=== PATIENT | female | born 1980 | race African-American/Black ===

== ENCOUNTER 2017-03-14 17:51 | Emergency (ER) | payer OTHER ==
[~2017-03-14] VITALS: Ht 149.9 cm; Wt 48.0 kg
[2017-03-14 17:53] VITALS: BP 122/68; PULSE 118; RESP 24; TEMP 98.7; O2SAT 97
[2017-03-14 19:07] LABS: AUTOMATED NEUTROPHIL # 20.2 TH/MM3 (1.8-7.7); BASOPHIL # 0.1 TH/MM3 (0-0.2); BASOPHIL % 0.3 % (0.0-2.0); HEMATOCRIT 42.6 % (35.0-46.0); HEMO FLAGS DIFF FINAL; LYMPH % 8.3 % (9.0-44.0); MEAN CELL VOLUME 98.3 FL (80.0-100.0); MEAN CORPUSCULAR HEMOGLOBIN 32.5 PG (27.0-34.0); MEAN CORPUSCULAR HGB CONC 33.1 % (32.0-36.0); MONO % 8.4 % (0.0-8.0); PLATELET COUNT 251 TH/MM3 (150-450); RED BLOOD COUNT 4.33 MIL/MM3 (4.00-5.30); RED CELL DISTRIBUTION WIDTH 14.3 % (11.6-17.2); WHITE BLOOD COUNT 24.4 TH/MM3 (4.0-11.0)
[2017-03-14 19:11] LABS: BACTERIA, URINE RARE /hpf; BLOOD, URINE MOD (NEG); COMMENT (UR) CULT NOT INDICATED; CULTURE IF INDICATED CULT NOT INDICATED; GLUCOSE,URINE NEG (NEG); KETONE, URINE NEG (NEG); NITRITE,URINE NEG (NEG); PH, URINE 6.5 (5.0-8.5); SQUAMOUS EPITHELIAL CELL URINE 1 /hpf (0-5); URINE COLOR LIGHT-YELLOW (YELLW/STRAW)
[2017-03-14 19:23] LABS: ANION GAP 12 MEQ/L (5-15); AST (GOT) 41 U/L (15-37); BICARBONATE 23.6 MEQ/L (21.0-32.0); BLOOD UREA NITROGEN 4 MG/DL (7-18); CHLORIDE 101 MEQ/L (98-107); GLOMERULAR FILTRATION RATE 72 ML/MIN (>89); POTASSIUM 3.4 MEQ/L (3.5-5.1); SODIUM (NA) 137 MEQ/L (136-145)
[2017-03-14 19:24] LABS: ALT (GPT) 37 U/L (10-53)
[2017-03-14 19:26] LABS: ALKALINE PHOSPHATASE 89 U/L (45-117); TOTAL BILIRUBIN ADULT 1.3 MG/DL (0.2-1.0)
[2017-03-15] MEDS ORDERED: QUET300XR PO (09:24)
[2017-03-15] MEDS ORDERED: CELE40TA PO (09:24)
[2017-03-15] MEDS ORDERED: DOXY100C PO (10:40)
[2017-03-15] MEDS ORDERED: METR-1 PO (10:40)
[2017-03-15] MEDS ORDERED: NAPR500T PO (10:40)
[2017-03-15] MEDS ORDERED: MACR100C2 PO (10:47)
[2017-03-22] MEDS ORDERED: ZOFR4TAB3 SL (12:42)
== END 2017-03-14 22:24 | disposition left against medical advice (07) ==
LOC: NED 17:51
DX: R10.9 Unspecified abdominal pain (principal)
CPT/HCPCS: 80053; 81001; 83690; 84703; 85025; 99281

== ENCOUNTER 2017-03-15 09:10 | Inpatient (IN) | payer OTHER ==
[~2017-03-15] VITALS: Ht 149.9 cm; Wt 50.0 kg
[2017-03-15 09:12] VITALS: BP 112/70; PULSE 130; RESP 20; TEMP 99.1; O2SAT 99
[2017-03-15] MEDS ORDERED: QUET300XR PO (09:24)
[2017-03-15] MEDS ORDERED: CELE40TA PO (09:24)
[2017-03-15 09:59] LABS: AUTOMATED NEUTROPHIL # 11.5 TH/MM3 (1.8-7.7); BASOPHIL % 0.2 % (0.0-2.0); EOSINOPHIL % 0.1 % (0.0-4.0); HEMO FLAGS DIFF FINAL; LYMPH % 5.5 % (9.0-44.0); LYMPHOCYTE # 0.7 TH/MM3 (1.0-4.8); MEAN CELL VOLUME 96.4 FL (80.0-100.0); MEAN CORPUSCULAR HEMOGLOBIN 32.9 PG (27.0-34.0); MEAN CORPUSCULAR HGB CONC 34.1 % (32.0-36.0); MONO % 3.9 % (0.0-8.0); NEUT % 90.3 % (16.0-70.0); PLATELET COUNT 224 TH/MM3 (150-450); RED BLOOD COUNT 3.63 MIL/MM3 (4.00-5.30); RED CELL DISTRIBUTION WIDTH 14.4 % (11.6-17.2); WHITE BLOOD COUNT 12.7 TH/MM3 (4.0-11.0)
[2017-03-15 10:10] VITALS: BP 115/77; PULSE 102; RESP 16; O2SAT 99
--- NOTE | 2017-03-15 10:13 | PD ---
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 The patient denies a fevers, chills patient was noted to have a low- grade temperature of 99.1 in triage. The patient states that she feels as though she has pressure in her vaginal area. She also reports abdominal discomfort in her lower abdominal area. As no dysuria, frequency. There is no diarrhea. She has had nausea vomiting. PFSH Past Medical History Depression: Yes ?: Unknown LMP: 01/23 Social History Alcohol Use: Yes (beer daily) Tobacco Use: Yes (/2 ppd) Substance Use: Yes (marijuana) Allergies-Medications (Allergen,Severity, Reaction): Coded Allergies: No Known Allergies (Unverified , 03/15/17) Reported Meds & Prescriptions Reported Meds & Active Scripts Active Macrobid (Nitrofurantoin Monoh/Nitrofur Macro) 100 Mg Cap 100 Mg PO BID Naproxen 500 Mg Tab 500 Mg PO BID Doxycycline Hyclate 100 Mg Cap 100 Mg PO BID Reported Seroquel XR (Quetiapine Fumarate) 300 Mg Tab 300 Mg PO HS Celexa (Citalopram Hydrobromide) 40 Mg Tab 40 Mg PO DAILY Review of Systems Except as stated in HPI: all other systems reviewed are Neg General / Constitutional: No: Fever (nonreported but temp of 99 point) HENT: No: Headaches, Neck Pain Cardiovascular: No: Chest Pain or Discomfort, Palpitations Respiratory: No: Cough, Shortness of Breath Gastrointestinal: Positive: Nausea, Vomiting, Abdominal Pain (lower abdominal/ pelvic), No: Diarrhea Genitourinary: Positive: Pelvic Pain, Discharge (thick yellow-green), No: Frequency, Dysuria Musculoskeletal: No: Weakness, Pain Neurologic: No: Weakness, Dizziness Physical Exam Narrative GENERAL: Well-nourished, well-developed patient. SKIN: Focused skin assessment warm/dry. HEAD: Normocephalic/atraumatic. EYES: No scleral icterus. No injection or drainage. NECK: Supple, trachea midline. No JVD or lymphadenopathy. CARDIOVASCULAR: Regular rate and rhythm without murmurs, gallops, or rubs. RESPIRATORY: Breath sounds equal bilaterally. No accessory muscle use. GASTROINTESTINAL: Abdomen soft, nondistended. She has subjective lower abdominal pain in the middle and in the pelvic area. GENITOURINARY: In the presence of Lashae Quiñones RN. Normal external genitalia without lesions or erythema. Vaginal vault without blood yellow green discharge. Cervical os was closed without drainage. Positive cervical motion tenderness with "chandelier sign". No adnexal masses. There was adnexal discomfort on bimanual exam. MUSCULOSKELETAL: No cyanosis, or edema. BACK: Nontender without obvious deformity. No CVA tenderness. Data Data Last Documented VS Vital Signs Date Time Temp Pulse Resp B/P Pulse Ox O2 Delivery O2 Flow Rate FiO2 03/15/17 09:12 99.1 130 20 112/70 99 Room Air Orders Complete Blood Count With Diff (03/15/17 09:22) Basic Metabolic Panel (Bmp) (03/15/17 09:22) Gc And Chlamydia Pcr (03/15/17 09:22) Wet Prep Profile (03/15/17 09:22) Urinalysis - C+S If Indicated (03/15/17 09:22) Ed Urine Pregnancytest Poc (03/15/17 09:22) Urine Culture (03/15/17 09:30) Doxycycline (Vibratab) (03/15/17 10:45) Lidocaine 1% Inj (50 Ml) (Xylocaine 1% I (03/15/17 10:45) Ceftriaxone Inj (Rocephin Inj) (03/15/17 10:45) Labs Laboratory Tests Test 03/15/17 03/15/17 09:30 10:01 White Blood Count 12.7 TH/MM3 Red Blood Count 3.63 MIL/MM3 Hemoglobin 11.9 GM/DL Hematocrit 35.0 % Mean Corpuscular Volume 96.4 FL Mean Corpuscular Hemoglobin 32.9 PG Mean Corpuscular Hemoglobin 34.1 % Concent Red Cell Distribution Width 14.4 % Platelet Count 224 TH/MM3 Mean Platelet Volume 8.7 FL Neutrophils (%) (Auto) 90.3 % Lymphocytes (%) (Auto) 5.5 % Monocytes (%) (Auto) 3.9 % Eosinophils (%) (Auto) 0.1 % Basophils (%) (Auto) 0.2 % Neutrophils # (Auto) 11.5 TH/MM3 Lymphocytes # (Auto) 0.7 TH/MM3 Monocytes # (Auto) 0.5 TH/MM3 Eosinophils # (Auto) 0.0 TH/MM3 Basophils # (Auto) 0.0 TH/MM3 CBC Comment DIFF FINAL Differential Comment Urine Color YELLOW Urine Turbidity HAZY Urine pH 6.5 Urine Specific [place] 1.017 Urine Protein 30 mg/dL Urine Glucose (UA) NEG mg/dL Urine Ketones TRACE mg/dL Urine Occult Blood MOD Urine Nitrite NEG Urine Bilirubin NEG Urine Urobilinogen 8.0 MG/DL Urine Leukocyte Esterase MOD Urine RBC 60 /hpf Urine WBC 12 /hpf Urine Squamous Epithelial 4 /hpf Cells Urine Bacteria RARE /hpf Urine Hyaline Casts 1 /lpf Urine Mucus FEW /lpf Microscopic Urinalysis Comment CULTURE INDICATED Clue Cells (Wet Prep) NONE SEEN Vaginal Trichomonas (Wet Prep) NONE SEEN Vaginal Yeast (Wet Prep) NONE SEEN MDM Medical Decision Making Medical Screen Exam Complete: Yes Emergency Medical Condition: Yes Differential Diagnosis Pelvic inflammatory disease versus intra-abdominal infection versus cystitis versus ectopic Narrative Course 36-year-old female present with pelvic pain and vaginal discharge. The patient has cervical motion tenderness with "chandelier sign on exam. Patient is also noted to have a UTI on exam. She's been given Rocephin and 1 dose of doxycycline orally. She'll be given 14 days further of doxycycline. She'll also be given a prescription for Macrobid for her UTI. She is instructed to follow up through [facility]. She's also instructed to practice safe sex and have her partner treated. Diagnosis Primary Impression: Pelvic infection in female Additional Impression: Urinary tract infection Additional Instructions: Have your partner treated. Safe sex. Follow up for [facility]. Med/Other Pt SpecificInfo: Prescription(s) given Scripts Nitrofurantoin Monohydrate Macrocrystals (Macrobid)100 Mg [id number] Mg PO BID #14 CAP Ref 0 Prov:Momo Miner MD 03/15/17 Naproxen 500 Mg [id number] Mg PO BID #20 TAB Ref 0 Prov:Momo Miner MD 03/15/17 Doxycycline Hyclate 100 Mg [id number] Mg PO BID #28 CAP Ref 0 Prov:Momo Miner MD 03/15/17 Disposition: 01 DISCHARGE HOME Condition: Stable Momo Miner MD Mar 15, 2017 10:13
[2017-03-15 10:20] LABS: BICARBONATE 21.2 MEQ/L (21.0-32.0)
[2017-03-15 10:27] LABS: BACTERIA, URINE RARE /hpf; BLOOD, URINE MOD (NEG); COMMENT (UR) CULTURE INDICATED; CULTURE IF INDICATED CULTURE INDICATED; GLUCOSE,URINE NEG (NEG); HYALINE CAST, URINE 1 /lpf (RARE); KETONE, URINE TRACE mg/dL (NEG); MUCUS URINE FEW /lpf (OCC); NITRITE,URINE NEG (NEG); PH, URINE 6.5 (5.0-8.5); SQUAMOUS EPITHELIAL CELL URINE 4 /hpf (0-5); URINE COLOR YELLOW (YELLW/STRAW)
[2017-03-15] MEDS ORDERED: NAPR500T PO (10:40)
[2017-03-15] MEDS ORDERED: METR-1 PO (10:40)
[2017-03-15] MEDS ORDERED: DOXY100C PO (10:40)
[2017-03-15] MEDS ORDERED: DOXYCYCLINE HYCLATE 100 MG TAB PO ONE (10:45)
[2017-03-15] MEDS ORDERED: LIDOCAINE HCL 1% 50 ML VIAL IM ONE (10:45)
[2017-03-15] MEDS ORDERED: MACR100C2 PO (10:47)
[2017-03-15 10:50] LABS: POTASSIUM 2.9 MEQ/L (3.5-5.1)
[2017-03-15] MEDS ORDERED: ceFOXitin INJ 2 GM in SODIUM CHLORIDE 0.9% INJ 100 ML IV ONE (11:15)
[2017-03-15] MEDS: POTASSIUM CHLORIDE INJ 30 MEQ in LACTATED RINGER'S 1000 ML INJ 1,000 ML IV SCH (11:15)
[2017-03-15] MEDS ORDERED: DOXYCYCLINE INJ 100 MG in SODIUM CHLORIDE 0.9% INJ 100 ML IV ONE (11:15)
[2017-03-15] MEDS ORDERED: ACETAMINOPHEN 325 MG TAB PO PRN (11:30)
[2017-03-15] MEDS ORDERED: LACTULOSE SYRUP 20 GM/30 ML CUP PO PRN (11:30)
[2017-03-15] MEDS ORDERED: SENNOSIDES 8.6 MG TAB PO PRN (11:30)
[2017-03-15] MEDS ORDERED: ONDANSETRON HCL 4 MG/2 ML VIAL IVP PRN (11:30)
[2017-03-15] MEDS ORDERED: SODIUM CHLORIDE 0.9% FLUSH 10 ML FLUSH IV FLUSH PRN (11:30)
[2017-03-15] MEDS ORDERED: NALOXONE HCL 0.4 MG/ML AMP IV PRN ×2 (11:30→15:30)
[2017-03-15] MEDS ORDERED: BISACODYL 10 MG SUPP RECTAL PRN (11:30)
[2017-03-15] MEDS ORDERED: MAGNESIUM HYDROXIDE SUSP 30 ML CUP PO PRN (11:30)
[2017-03-15] MEDS ORDERED: POTASSIUM CHLORIDE 20 MEQ CONTROLLED RELEASE TAB PO ONE (11:45)
[2017-03-15] MEDS ORDERED: KETOROLAC TROMETHAMINE 30 MG/ML (IVP) VIAL IV PUSH SCH (12:30)
[2017-03-15 12:38] LABS: CHLAMYDIA PCR NOT DETECTED (NOT DETECT); NEISSERIA PCR NOT DETECTED (NOT DETECT)
[2017-03-15] MEDS ORDERED: DOCUSATE SODIUM 50 MG/SENNA 8.6 MG TAB PO ONE (12:45)
[2017-03-15] MEDS ORDERED: LORazepam 2 MG TAB PO PRN (13:00)
[2017-03-15] MEDS ORDERED: FLUMAZENIL 0.5 MG/5 ML VIAL IV PUSH PRN (13:00)
[2017-03-15] MEDS ORDERED: LORazepam 1 MG TAB PO PRN (13:00)
[2017-03-15] MEDS ORDERED: LORazepam 2 MG/ML VIAL IV PUSH PRN ×4 (13:00)
--- NOTE | 2017-03-15 14:00 | HHI.HP ---
[facility] Service Family Medicine Primary Care Physician Unknown Admission Diagnosis PID, UTI, Hypokalemia Diagnoses: (1) Pelvic infection in female Diagnosis: Principal (2) Urinary tract infection Diagnosis: Secondary (3) Hypokalemia Diagnosis: Secondary (4) Alcohol abuse Diagnosis: Secondary (5) Tobacco abuse Diagnosis: Secondary (6) Substance abuse Diagnosis: Secondary International Travel<30 Days: No Contact w/Intl Traveler<30days: No Known Affected Area: No History of Present Illness Patient is a 36-year-old female who presents to the ED with complaints of abdominal and pelvic pain with "creamy white" vaginal discharge. She states that the pain is located below her naval bilaterally. The patient describes it as a sharp, non-radiating pain that comes and goes x3 days. She says that the pain is a 10/10 (8/10 after pain meds: Tylenol 3 x2 yesterday as well as day before yesterday plus Excedrin); she has been in bed, unable to complete daily tasks. Patient admits to feeling feverish two days ago but did not measure her temperature at that time. She denies chills. In triage, she was noted to have a low-grade fever of 99.1 F. Patient admits to muscle weakness and generalized body aches. Patient states that she is regularly hospitalized for pain associated with bilateral ovarian cysts; she sees guest advisor and surgical management has been discussed. She says that the pain she is experiencing now is different than in the past. Patient states that she is sexually active with one male partner. Her last menstrual period was in January; her periods are irregular. A test in the ED was negative. Patient states that she had a normal Pap Smear about two week ago. She has never been . She admits to a hx of recurrent UTIs (last UTI was 3-4 months ago; she has them "every couple of months"), PID and Bacterial Vaginosis. Patient also describes a pressure/"heavy feeling" in her vaginal area over the past few days. She admits to severe pain with urination. She denies increased frequency or urge to urinate. She denies blood in her urine. In ED, UA showed evidence of UTI. Potassium levels were found to be critically low in ED. Patient states that she has had low potassium levels in the past (hospital stay a few months ago) and was treated with potassium supplementation while in the hospital. She was not given a reason for the low potassium and was not discharged with potassium supplementation. She denies chest pain, heart palpitations and shortness of breath. She admits to nausea and vomiting for the past two days; she threw up twice yesterday. She denies blood in her vomit. She denies diarrhea. She has not had a bowel movement in three days, which is not unusual for her as she sometimes goes two weeks without having a bowel movement. She is not currently on a stool softener. Of note, patient voluntarily stayed at a mental health facility in [place] x 3days about three weeks ago. She suffers from depression. Patient also states that she consumes "one beer and a couple of shots of Vodka" daily. She describes one shot as a red solo cup. Her last drink was yesterday around 5 p.m. She understands that she should not be drinking while taking her psych medications and she admits to "acting crazy" when she does. When asked about withdrawal symptoms, she admits to mild shaking but denies any seizure-like activity. Patient also admits to tobacco use since she was 19 years old; she smokes 1/2 pack/day. She also smokes marijuana (last: Mother's Day) and smokes or snorts cocaine (last: 03/12). She denies IV drug use. (Janneth Soares MD R1) Review of Systems Constitutional: COMPLAINS OF: Fatigue, Fever, DENIES: Chills Endocrine: COMPLAINS OF: Abnorml menstrual pattern Eyes: DENIES: Blurred vision, Vision loss, Double Vision Ears, nose, mouth, throat: DENIES: Hearing loss, Nasal discharge, Throat pain, Hoarseness, Running Nose Respiratory: DENIES: Shortness of breath Cardiovascular: DENIES: Chest pain, Palpitations Gastrointestinal: COMPLAINS OF: Abdominal pain, Constipation, Nausea, Vomiting , DENIES: Bloody stools, Diarrhea Genitourinary: COMPLAINS OF: Vaginal discharge, DENIES: Urinary frequency, Urinary incontinence, Urgency Musculoskeletal: COMPLAINS OF: Muscle aches, Back pain Integumentary: DENIES: Abnormal pigmentation Hematologic/lymphatic: DENIES: Bruising Neurologic: DENIES: Seizures Psychiatric: COMPLAINS OF: Depression (Janneth Soares MD R1) Past Family Social History Past Medical History * Recurrent UTI: last was 3-4 months ago; gets them every "couple of months" * PID * Bacterial Vaginosis * Depression Reported Medications Reported Seroquel XR (Quetiapine Fumarate) 300 Mg Tab 300 Mg PO HS Celexa (Citalopram Hydrobromide) 40 Mg Tab 40 Mg PO DAILY (Janneth Soares MD R1) Allergies: Coded Allergies: No Known Allergies (Unverified , 03/15/17) Active Ordered Medications Current Medications Medications (Trade) Dose Ordered Sig/Barron Route Start Time Stop Time Status Last Admin Potassium Chloride 30 meq/ Lactated Ringer's 1,015 ml @ 42 mls/hr Q24H IV 03/15/17 11:15 03/15/17 11:15 (NS 1000 ml Inj) 1,000 ml @ 100 mls/hr Q10H IV 03/15/17 12:00 (NS Flush) 2 ml UNSCH PRN IV FLUSH 03/15/17 11:30 (NS Flush) 2 ml BID IV FLUSH 03/15/17 21:00 (Tylenol) 650 mg Q4H PRN PO 03/15/17 11:30 (Zofran Inj) 4 mg Q6H PRN IVP 03/15/17 11:30 (Narcan Inj) 0.4 mg UNSCH PRN IV 03/15/17 11:30 (Lisa-Colace) 1 tab BID PO 03/15/17 21:00 (Senokot) 17.2 mg Q12H PRN PO 03/15/17 11:30 (Dulcolax Supp) 10 mg DAILY PRN RECTAL 03/15/17 11:30 (Lactulose Liq) 30 ml DAILY PRN PO 03/15/17 11:30 (Toradol Inj) 30 mg Q6HR IV PUSH 03/15/17 12:30 03/20/17 12:29 03/15/17 12:30 (CeleXA) 40 mg DAILY@08 PO 03/16/17 08:00 (SEROquel) 150 mg BID PO 03/15/17 21:00 (Vibratab) 100 mg Q12HR PO 03/15/17 21:00 (Pill Splitter) 1 ea UNSCH PRN OTHER 03/15/17 21:00 (Romazicon Inj) 0.2 mg Q1M PRN IV PUSH 03/15/17 13:00 UNV (Ativan) 1 mg Q4H PRN PO 03/15/17 13:00 UNV (Ativan Inj) 1 mg Q4H PRN IV PUSH 03/15/17 13:00 UNV (Ativan) 2 mg Q2H PRN PO 03/15/17 13:00 UNV (Ativan Inj) 2 mg Q2H PRN IV PUSH 03/15/17 13:00 UNV (Ativan Inj) 2 mg Q1H PRN IV PUSH 03/15/17 13:00 UNV (Ativan Inj) 2 mg Q15M PRN IV PUSH 03/15/17 13:00 UNV Family History Non-contributory Social History Alcohol Use: * One beer plus a couple of shots of Vodka daily; one shot = red solo cup Tobacco Use: * Since 19 years of age * 1/2 pack/day Substance Use: * Marijuana; last use: Mother's Day * Cocaine; last use 03/12/17; smokes and snorts * Denies IV drug use Patient lives in [place]. She has a fiancee. (Janneth Soares MD R1) Physical Exam Vital Signs Vital Signs Date Time Temp Pulse Resp B/P Pulse Ox O2 Delivery O2 Flow Rate FiO2 03/15/17 10:10 102 16 115/77 99 Room Air 03/15/17 09:12 99.1 130 20 112/70 99 Room Air Physical Exam GENERAL: This is a well-nourished, well-developed patient, in no apparent distress. SKIN: No rashes, ecchymoses or lesions. Cool and dry. HEAD: Atraumatic. Normocephalic. No temporal or scalp tenderness. EYES: Pupils equal round and reactive. Extraocular motions intact. No scleral icterus. No injection or drainage. ENT: Nose without bleeding, purulent drainage or septal hematoma. Throat without erythema, tonsillar hypertrophy or exudate. Uvula midline. Airway patent. NECK: Trachea midline. No JVD or lymphadenopathy. Supple, nontender, no meningeal signs. CARDIOVASCULAR: Regular rate and rhythm without murmurs, gallops, or rubs. RESPIRATORY: Clear to auscultation. Breath sounds equal bilaterally. No wheezes , rales, or rhonchi. GASTROINTESTINAL: Abdomen tense, tender, distended. Voluntary guarding. No CVA tenderness. No hepato-splenomegaly, or palpable masses. MUSCULOSKELETAL: Extremities without clubbing, cyanosis, or edema. No joint tenderness, effusion, or edema noted. No calf tenderness. NEUROLOGICAL: Awake and alert. Cranial nerves II through XII intact. Motor and sensory grossly within normal limits. Normal speech. Laboratory Laboratory Tests Test 03/15/17 03/15/17 09:30 10:01 White Blood Count 12.7 Red Blood Count 3.63 Hemoglobin 11.9 Hematocrit 35.0 Mean Corpuscular Volume 96.4 Mean Corpuscular Hemoglobin 32.9 Mean Corpuscular Hemoglobin 34.1 Concent Red Cell Distribution Width 14.4 Platelet Count 224 Mean Platelet Volume 8.7 Neutrophils (%) (Auto) 90.3 Lymphocytes (%) (Auto) 5.5 Monocytes (%) (Auto) 3.9 Eosinophils (%) (Auto) 0.1 Basophils (%) (Auto) 0.2 Neutrophils # (Auto) 11.5 Lymphocytes # (Auto) 0.7 Monocytes # (Auto) 0.5 Eosinophils # (Auto) 0.0 Basophils # (Auto) 0.0 CBC Comment DIFF FINAL Differential Comment Urine Color YELLOW Urine Turbidity HAZY Urine pH 6.5 Urine Specific [place] 1.017 Urine Protein 30 Urine Glucose (UA) NEG Urine Ketones TRACE Urine Occult Blood MOD Urine Nitrite NEG Urine Bilirubin NEG Urine Urobilinogen 8.0 Urine Leukocyte Esterase MOD Urine RBC 60 Urine WBC 12 Urine Squamous Epithelial 4 Cells Urine Bacteria RARE Urine Hyaline Casts 1 Urine Mucus FEW Microscopic Urinalysis Comment CULTURE INDICATED Sodium Level 132 Potassium Level 2.9 Chloride Level 100 Carbon Dioxide Level 21.2 Anion Gap 11 Blood Urea Nitrogen 8 Creatinine 1.01 Estimat Glomerular Filtration 75 Rate Random Glucose 142 Calcium Level 9.0 Clue Cells (Wet Prep) NONE SEEN Vaginal Trichomonas (Wet Prep) NONE SEEN Vaginal Yeast (Wet Prep) NONE SEEN Chlamydia trachomatis DNA NOT DETECTED (PCR) Neisseria gonorrhoeae DNA NOT DETECTED (PCR) Date/Time Procedure Status Source Growth 03/15/17 09:30 Urine Culture Received Urine Clean Catch Pending (Janneth Soares MD R1) Result Diagram: 03/15/1730 03/15/17 0930 Assessment and Plan Assessment and Plan Patient is a 36-year-old female who presents to the ED with complaints of abdominal and pelvic pain x 3 days. In the ED, exam was positive for PID and UA showed evidence of UTI. Critical K level was noted at admission, treated but has not yet corrected. Patient admitted to observation. Code Status Full Code Discussed Condition With Dr. Brynn Cameron (Janneth Soares MD R1) Attending Attestation THIS CASE WAS DISCUSSED WITH THE RESIDENT PHYSICIANS AND THE PATIENT WAS SEEN AND EXAMINED BY ME. I HAVE REVIEWED THE RECORD AND AGREE WITH THE ABOVE NOTE AND PLAN OF CARE WAS DISCUSSED. I HAVE AUTHORIZED THE ORDER FOR ADMISSION TO AN IN-PATIENT STATUS. UPON FURTHER REVIEW OF HER INITIAL TESTING IN THE ED IT IS MORE LIKELY THIS PATIENT HAS COMPLICATED PYELONEPHRITIS WITH GEGE AND ELECTROLYTE ABNORMALITIES. SHE ALSO HAS A SIGNIFICANTLY DISTENDED AND TENDER ABDOMEN. IT DOES NOT APPEAR TO BE SURGICAL BUT DUE TO HER SYMPTOMS AND HER RENAL FUNCTION THIS WARRANTS SOME IMAGING. ADJUST HER ABX TO COVER FOR PYELO, FLUID BOLUS TO SEE IF THIS WILL HELP IMPROVE HER GEGE, AGGRESSIVELY TREAT HER ELECTROLYTE ABNORMALITIES AND WILL START WITH ABD US. (Karen Cameron MD) Problem List: (1) Pelvic infection in female Status: Acute Plan: PE in ED was positive for cervical motion tenderness and greenish discharge was noted by physician. Etiology unclear * Chlamydia negative * N. gonorrhoeae negative Vitals at admission: * T 99.1 * P 130 * RR 20 * BP 112/70 * O2 99 on room air Notable labs at admission: * WBC 12.7 * UA: positive for RBCs, WBCs, and leukocyte esterase * Clue Cells negative * Vaginal Trichomonas negative * Vaginal Yeast negative Patient received Cefoxitin 2gm once IV and doxycycline 100mg once IV in the ED. Ceftriaxone 1,000mg q24hr IV and doxycycline 100 mg q12hr PO is ordered. (2) Urinary tract infection Status: Acute Plan: Patient complained of severe pain with urination. Etiology unclear * Urine culture pending Vitals at admission: * T 99.1 * P 130 * RR 20 * BP 112/70 * O2 99 on room air Notable labs at admission: * WBC 12.7 * UA: positive for RBCs, WBCs, and leukocyte esterase * Clue Cells negative * Vaginal Trichomonas negative * Vaginal Yeast negative Suspicion for pyelonephritis warrants work-up at this time * CVA tenderness negative * Kidney US negative Patient received Cefoxitin 2gm once IV and doxycycline 100mg once IV in the ED. Ceftriaxone 1,000mg q24hr IV and doxycycline 100 mg q12hr PO is ordered. (3) Hypokalemia Status: Acute Plan: In ED, K of 2.9 was noted. Patient is asymptomatic. Etiology unclear. Patient received Potassium Chloride 30 meq once IV and Potassium Chloride 40 meq once PO. Repeat K level remained at 2.9. An additional order for Potassium Chloride 40 meq once PO is placed. Repeat BMP ordered for 18:00 today. EKG shows no evidence of diffuse t wave changes at this time. (4) GEGE (acute kidney injury) Status: Acute Plan: Cr 1.01H, BUN 8 and estimated GFR 75L; repeat Cr 1.4, BUN 5L and 52L Etiology unclear * Possible dehydration associated with excessive alcohol intake (5) Alcohol abuse Status: Chronic Plan: Patient admits to excessive drinking. * Beer x1/day plus shots of Vodka x2; shot = red solo cup Denies hx of alcohol withdrawal seizures or DT. Started on CIWA protocol. (6) Tobacco abuse Status: Chronic Plan: Patient admits to smoking 1/2 pack/day since she was 19 years old. She shows interest in tobacco cessation counseling/education. Nicotine 7mg t-dermal patch daily ordered. (7) Fluid, Electrolyte, Nutrition and Prophylaxis Status: Acute Plan: Fluid: * NS Bolus: 1,000ml @999 mls/hr once IV * Maintenance fluid: 1,000 ml @100 mls/hr q10h IV Electrolytes * Potassium - see hypokalemia * Replete when necessary Nutrition: * Regular diet. DVT Prophylaxis: * Not indicated at this time. GI Prophylaxis: * Not indicated at this time. (Janneth Soares MD R1) Problem Qualifiers (1) Urinary tract infection: Qualified Code: N30.01 - Acute cystitis with hematuria Janneth Soares MD R1 Mar 15, 2017 14:00 Karen Cameron MD Mar 16, 2017 12:59
[2017-03-15 14:01] LABS: ANION GAP 7 MEQ/L (5-15); INDIRECT BILIRUBIN 0.7 MG/DL (0.0-0.8)
[2017-03-15 14:07] LABS: BICARBONATE 25.8 MEQ/L (21.0-32.0); BLOOD UREA NITROGEN 5 MG/DL (7-18); CHLORIDE 102 MEQ/L (98-107); GLOMERULAR FILTRATION RATE 52 ML/MIN (>89); MAGNESIUM 1.5 MG/DL (1.5-2.5); SODIUM (NA) 135 MEQ/L (136-145)
[2017-03-15 14:11] LABS: POTASSIUM 2.9 MEQ/L (3.5-5.1)
[2017-03-15 14:21] VITALS: BP 114/63; PULSE 107; RESP 15; TEMP 97.8; O2SAT 100
[2017-03-15] MEDS ORDERED: POTASSIUM CHLORIDE 10 MEQ CONTROLLED RELEASE TAB PO ONE (15:00)
[2017-03-15] MEDS ORDERED: SODIUM CHLOR 0.9% 1000 ML INJ 1,000 ML IV ONE (15:30)
--- NOTE | 2017-03-15 16:26 | RADRPT ---
EXAM DATE/TIME: 03/15/2017 15:42 [facility] COMPARISON: No previous studies available for comparison. INDICATIONS : Increased BUN/Creatnine. MEDICAL HISTORY : Abdominal pain. Constipation. Back pain. Nausea. Fatigue. SURGICAL HISTORY : None. ENCOUNTER: Initial ACUITY: 3 days PAIN SCORE: 7/10 LOCATION: Bilateral flank MEASUREMENTS: RIGHT KIDNEY: 9.6 x 4.5 x 3.9 cm LEFT KIDNEY: 9.2 x 4.9 x 4.7 cm FINDINGS: RIGHT KIDNEY: Renal cortex is normal in thickness and echotexture. No hydronephrosis, stone, or mass. LEFT KIDNEY: Renal cortex is normal in thickness and echotexture. No hydronephrosis, stone, or mass. BLADDER: Moderately distended. There are 2 rounded cystic areas within the lumen of the posterior urinary odalys dder measuring up to 3.1 cm, probable cystoceles. Also in the croen-ag-frug of the urinary bladder a re multiple right adnexal cysts measuring up to 9.5 cm (the patient states she is being followed by h er woolen suiting shrinker for this finding). CONCLUSION: 1. Negative renal sonogram. 2. Cystic defects within the lumen of the urinary bladder posterior, possible cystoceles. Truong Chino MD on March 15, 2017 at 16:22 Board Certified Radiologist. This report was verified electronically.
[2017-03-15] MEDS: SODIUM CHLOR 0.9% 1000 ML INJ 1,000 ML IV SCH (16:56)
[2017-03-15 17:00] VITALS: BP 114/63; PULSE 107; RESP 16; TEMP 98; O2SAT 100
[2017-03-15] MEDS ORDERED: cefTRIAXone INJ 1,000 MG in SODIUM CHLORIDE 0.9% INJ 100 ML IV SCH (17:00)
[2017-03-15] MEDS: ACETAMINOPHEN/HYDROcodone 325 MG/5 MG TAB PO PRN (17:32)
[2017-03-15] MEDS: NICOTINE 7 MG/24 HR PATCH T-DERMAL SCH (18:25)
[2017-03-15 18:58] LABS: BICARBONATE 20.5 MEQ/L (21.0-32.0); MAGNESIUM 1.5 MG/DL (1.5-2.5); POTASSIUM 3.6 MEQ/L (3.5-5.1)
[2017-03-15 19:24] VITALS: O2SAT 100
[2017-03-15 19:35] VITALS: BP 123/78; PULSE 98; RESP 19; TEMP 98.1; O2SAT 100
[2017-03-15] MEDS ORDERED: DOXYCYCLINE HYCLATE 100 MG TAB PO SCH (21:00)
[2017-03-15] MEDS ORDERED: PILL SPLITTER OTHER PRN (21:00)
[2017-03-15] MEDS: DOCUSATE SODIUM 50 MG/SENNA 8.6 MG TAB PO SCH (21:06)
[2017-03-15] MEDS: QUEtiapine FUMARATE 100 MG TAB PO SCH (21:07)
[2017-03-15] MEDS: SODIUM CHLORIDE 0.9% FLUSH 10 ML FLUSH IV FLUSH SCH (21:07)
[2017-03-15 23:05] LABS: LACTIC ACID GHOST NOT REPORTABLE
[2017-03-16] VITALS (8 sets, daily range): BP systolic 100–141; BP diastolic 55–93; PULSE 111–134; RESP 18–20; TEMP 97.7–100.5; O2SAT 96–100
[2017-03-16] MEDS ORDERED: POTASSIUM PHOSPHATE INJ 30 MMOL in SODIUM CHLOR 0.9% 250 ML INJ 250 ML IV ONE (01:00)
[2017-03-16] MEDS: SODIUM CHLOR 0.9% 1000 ML INJ 1,000 ML IV SCH ×3 (02:17→16:21)
[2017-03-16] MEDS: ACETAMINOPHEN/HYDROcodone 325 MG/5 MG TAB PO PRN (02:45)
[2017-03-16] MEDS: PIPERACIL-TAZO 3.375 GM PREMIX 50 ML IV SCH ×3 (08:00→19:50)
[2017-03-16] MEDS: NICOTINE 7 MG/24 HR PATCH T-DERMAL SCH (08:55)
[2017-03-16] MEDS: DOCUSATE SODIUM 50 MG/SENNA 8.6 MG TAB PO SCH ×2 (08:55→19:52)
[2017-03-16] MEDS: CITALOPRAM HYDROBROMIDE 40 MG TAB PO SCH (08:56)
[2017-03-16] MEDS: LACTOBACILLUS ACIDOPHILUS TAB PO SCH ×2 (08:56→19:52)
[2017-03-16] MEDS: SODIUM CHLORIDE 0.9% FLUSH 10 ML FLUSH IV FLUSH SCH ×2 (08:56→19:51)
[2017-03-16] MEDS: QUEtiapine FUMARATE 100 MG TAB PO SCH ×2 (08:56→21:20)
[2017-03-16] MEDS: REMOVE OLD PATCH T-DERMAL SCH ×2 (08:57→19:53)
[2017-03-16] MEDS: NICOTINE 21 MG/24 HR PATCH T-DERMAL SCH (10:38)
[2017-03-16] MEDS ORDERED: oxyCODONE/ACETAMINOPHEN 5 MG/325 MG TAB PO PRN (11:45)
[2017-03-16] MEDS: metroNIDAZOLE 500 MG TAB PO SCH ×2 (13:43→19:51)
[2017-03-16] MEDS: POTASSIUM CHLORIDE INJ 30 MEQ in LACTATED RINGER'S 1000 ML INJ 1,000 ML IV SCH (13:44)
--- NOTE | 2017-03-16 14:16 | HHI.FPPN ---
Subjective Remarks Patient seen and evaluated this morning. Patient is laying in bed, balled up. She complains of abdominal pain, which she says has stayed the same and is not relieved by the current pain medication regiment. She denies nausea/vomiting. She admits to multiple small bowel movements after receiving the stool softener last night. She denies chest pain, heart palpitations, and shortness of breath. Both IVs infiltrated and had to be removed earlier this morning. New IV access was attempted by nurse as well as vascular team until patient refused additional attempts. Patient also refused lab blood draws. Patient was educated on importance of IV access to administer antibiotics and blood draws to monitor her condition. She understands and agrees to allow the vascular team to secure IV access. Patient admits that she has snuck alcohol and other substances into the hospital during previous stays. (Janneth Soares MD R1) Objective Vitals Vital Signs Date Time Temp Pulse Resp B/P Pulse Ox O2 Delivery O2 Flow Rate FiO2 03/16/17 11:30 97.7 125 20 141/93 100 03/16/17 07:36 98.1 111 18 114/60 96 03/16/17 03:23 18 03/16/17 03:11 100.5 126 20 100/55 99 03/16/17 00:01 99.9 134 20 110/57 100 03/15/17 19:35 98.1 98 19 123/78 100 03/15/17 19:24 100 21 03/15/17 17:00 98.0 107 16 114/63 100 03/15/17 14:21 97.8 107 15 114/63 100 I/O 03/15/17 03/15/17 03/15/17 03/16/17 03/16/17 03/16/17 07:00 15:00 23:00 07:00 15:00 23:00 Intake Total 400 ml Balance 400 ml Intake Oral 400 ml (Janneth Soares MD R1) Result Diagram: 03/15/17 0930 03/15/17 1811 Other Results Urine culture: Gardnerella Vaginalis CT pending. Imaging Last Impressions Renal Ultrasound 03/15/17 0000 Signed Impressions: Service Date/Time: Wednesday, March 15, 2017 15:42 - CONCLUSION: 1. Negative renal sonogram. 2. Cystic defects within the lumen of the urinary bladder posterior , possible cystoceles. Truong Chino MD Objective Remarks GENERAL: This is a well-nourished, well-developed patient, in some distress. SKIN: No rashes, ecchymoses or lesions. Cool and dry. HEAD: Atraumatic. Normocephalic. No temporal or scalp tenderness. EYES: Pupils equal round and reactive. Extraocular motions intact. No scleral icterus. No injection or drainage. ENT: Nose without bleeding, purulent drainage or septal hematoma. Throat without erythema, tonsillar hypertrophy or exudate. Uvula midline. Airway patent. NECK: Trachea midline. No JVD or lymphadenopathy. Supple, nontender, no meningeal signs. CARDIOVASCULAR: Regular rate and rhythm without murmurs, gallops, or rubs. RESPIRATORY: Clear to auscultation. Breath sounds equal bilaterally. No wheezes , rales, or rhonchi. GASTROINTESTINAL: Abdomen tense, tender, distended. Voluntary guarding. No CVA tenderness. No hepato-splenomegaly, or palpable masses. MUSCULOSKELETAL: Extremities without clubbing, cyanosis, or edema. No joint tenderness, effusion, or edema noted. No calf tenderness. NEUROLOGICAL: Awake and alert. Cranial nerves II through XII intact. Motor and sensory grossly within normal limits. Normal speech. Medications and IVs Current Medications Medications (Trade) Dose Ordered Sig/Barron Route Start Time Stop Time Status Last Admin Potassium Chloride 30 meq/ Lactated Ringer's 1,015 ml @ 42 mls/hr Q24H IV 03/15/17 11:15 03/15/17 11:15 (NS 1000 ml Inj) 1,000 ml @ 100 mls/hr Q10H IV 03/15/17 12:00 03/16/17 02:17 (NS Flush) 2 ml UNSCH PRN IV FLUSH 03/15/17 11:30 (NS Flush) 2 ml BID IV FLUSH 03/15/17 21:00 03/15/17 21:07 (Tylenol) 650 mg Q4H PRN PO 03/15/17 11:30 03/16/17 06:13 (Zofran Inj) 4 mg Q6H PRN IVP 03/15/17 11:30 (Narcan Inj) 0.4 mg UNSCH PRN IV 03/15/17 11:30 (Lisa-Colace) 1 tab BID PO 03/15/17 21:00 03/16/17 08:55 (Senokot) 17.2 mg Q12H PRN PO 03/15/17 11:30 (Dulcolax Supp) 10 mg DAILY PRN RECTAL 03/15/17 11:30 (Lactulose Liq) 30 ml DAILY PRN PO 03/15/17 11:30 (Toradol Inj) 30 mg Q6HR IV PUSH 03/15/17 12:30 03/20/17 12:29 Hold 03/15/17 12:30 (CeleXA) 40 mg DAILY@08 PO 03/16/17 08:00 03/16/17 08:56 (SEROquel) 150 mg BID PO 03/15/17 21:00 03/16/17 08:56 (Pill Splitter) 1 ea UNSCH PRN OTHER 03/15/17 21:00 (Romazicon Inj) 0.2 mg Q1M PRN IV PUSH 03/15/17 13:00 (Ativan) 1 mg Q4H PRN PO 03/15/17 13:00 (Ativan Inj) 1 mg Q4H PRN IV PUSH 03/15/17 13:00 (Ativan) 2 mg Q2H PRN PO 03/15/17 13:00 (Ativan Inj) 2 mg Q2H PRN IV PUSH 03/15/17 13:00 (Ativan Inj) 2 mg Q1H PRN IV PUSH 03/15/17 13:00 (Ativan Inj) 2 mg Q15M PRN IV PUSH 03/15/17 13:00 (Narcan Inj) 0.4 mg UNSCH PRN IV 03/15/17 15:30 Miscellaneous Information 1 DAILY T-DERMAL 03/16/17 09:00 Lactobacillus Acidophilus 2 tab 2 tab Q12HR PO 03/16/17 09:00 03/16/17 08:56 (Zosyn 3.375 Gm Premix) 50 ml @ 100 mls/hr Q6H IV 03/16/17 08:00 (Librium) 5 mg TID PO 03/16/17 13:00 (Habitrol 21 Mg Patch.24 Hr) 1 patch DAILY T-DERMAL 03/16/17 10:30 03/16/17 10:38 Miscellaneous Information 1 HS T-DERMAL 03/16/17 21:00 (Percocet 5-325 Mg) 1 tab Q6H PRN PO 03/16/17 11:45 (Percocet 10-325 Mg) 1 tab Q6H PRN PO 03/16/17 11:45 (Flagyl) 500 mg BID PO 03/16/17 13:30 (Janneth Soares MD R1) Urinary Catheter: No (Janneth Soares MD R1) Vascular Central Line Catheter: No (Janneth Soares MD R1) A/P Assessment and Plan Patient is a 36-year-old female who presents to the ED with complaints of abdominal and pelvic pain x 3 days. In the ED, exam was positive for PID and UA showed evidence of UTI. Critical K level was noted at admission, treated and corrected. Patient admitted to observation. Discharge Planning Pending clinical improvement; IV antibiotics x1-2 days (Janneth Soares MD R1) Attending Attestation The exam, history, and the medical decision-making described in the above note were completed with the assistance of the resident physician. I reviewed and agree with the findings presented. I attest that I had a [id number] encounter with the patient on the same day.. (Karen Cameron MD) Problem List: (1) Urinary tract infection Status: Acute Plan: At admission, patient complained of severe pain with urination. Etiology * Urine culture positive for Gardnerella Vaginalis. Vitals at admission: * T 99.1 * P 130 * RR 20 * BP 112/70 * O2 99 on room air Notable labs at admission: * WBC 12.7 * UA: positive for RBCs, WBCs, and leukocyte esterase * Clue Cells negative * Vaginal Trichomonas negative * Vaginal Yeast negative Suspicion for pyelonephritis warrants work-up at this time * CVA tenderness negative * Kidney US negative * Bladder US showed cystic defects with lumen of urinary bladder posterior, possible cystoceles - finding may predispose patient to recurrent UTIs * Temperature Max in 24 hr: 100.5 F * Pulse Range in 24 hr: 98 - 130 bmp * Lactic Acid 2.4 -> 3.0H Patient now on Zosyn and Flagyl due to suspicion for pyelonephritis and confirmed BV. She is also receiving maintenance fluids. Hospital Course * Switched to Ceftriaxone 1,000mg q24hr IV and doxycycline 100 mg q12hr PO on . * Patient received Cefoxitin 2gm once IV and doxycycline 100mg once IV in the ED. (2) Bacterial vaginosis Status: Acute Plan: Urine Culture: Gardnerella Vaginalis Started Flagyl 500 mg BID PO. (3) Pelvic infection in female Status: Acute Plan: PID unlikely based on lab tests and clinical picture. * Chlamydia negative * N. gonorrhoeae negative Vitals at admission: * T 99.1 * P 130 * RR 20 * BP 112/70 * O2 99 on room air Notable labs at admission: * WBC 12.7 * UA: positive for RBCs, WBCs, and leukocyte esterase * Clue Cells negative * Vaginal Trichomonas negative * Vaginal Yeast negative (4) Hypokalemia Status: Resolved Plan: In ED, K of 2.9 was noted. Patient was asymptomatic. Has since been corrected. Etiology unclear. Patient received Potassium Chloride 30 meq once IV and Potassium Chloride 40 meq once PO. Repeat K level remained at 2.9. An additional order for Potassium Chloride 40 meq once PO was placed. Repeat K was 3.6. EKG showed no evidence of diffuse t wave changes at this time. (5) GEGE (acute kidney injury) Status: Resolved Plan: BUN 7 and Cr 0.80 on 03/16 Continued maintenance fluids. Etiology unclear * Possible dehydration associated with excessive alcohol intake Hospital Course * Patient received NS bolus and was started on maintenance fluid * On admission, Cr 1.01H, BUN 8 and estimated GFR 75L; repeat Cr 1.4, BUN 5L and 52L. (6) Alcohol abuse Status: Chronic Plan: Patient admits to excessive drinking. * Beer x1/day plus shots of Vodka x2; shot = red solo cup Denies hx of alcohol withdrawal seizures or DT. Started on CIWA protocol. Started on Librium 5mg TID PO. (7) Tobacco abuse Status: Chronic Plan: Patient admits to smoking 1/2 pack/day since she was 19 years old. She shows interest in tobacco cessation counseling/education. Nicotine patch daily ordered. (8) Fluid, Electrolyte, Nutrition and Prophylaxis Status: Acute Plan: Fluid: * Maintenance fluid: 1,000 ml @100 mls/hr q10h IV Electrolytes * Potassium - see hypokalemia * Phosphorus - supplemented yesterday; awaiting repeat levels * Replete when necessary Nutrition: * Regular diet. DVT Prophylaxis: * Not indicated at this time. GI Prophylaxis: * Not indicated at this time. (Janneth Soares MD R1) Problem Qualifiers (1) Urinary tract infection: Qualified Code: N30.01 - Acute cystitis with hematuria Janneth Soares MD R1 Mar 16, 2017 14:16 Karen Cameron MD Mar 17, 2017 09:11
[2017-03-16] MEDS: oxyCODONE/ACETAMINOPHEN 10 MG/325 MG TAB PO PRN ×2 (14:45→21:20)
[2017-03-16 15:20] LABS: AUTOMATED NEUTROPHIL # 5.8 TH/MM3 (1.8-7.7); BASOPHIL % 0.2 % (0.0-2.0); EOSINOPHIL # 0.1 TH/MM3 (0-0.4); EOSINOPHIL % 0.8 % (0.0-4.0); LYMPH % 9.7 % (9.0-44.0); LYMPHOCYTE # 0.7 TH/MM3 (1.0-4.8); MEAN CORPUSCULAR HEMOGLOBIN 32.5 PG (27.0-34.0); MEAN CORPUSCULAR HGB CONC 32.8 % (32.0-36.0); MONO % 8.3 % (0.0-8.0); PLATELET COUNT 172 TH/MM3 (150-450); RED BLOOD COUNT 3.23 MIL/MM3 (4.00-5.30); RED CELL DISTRIBUTION WIDTH 14.7 % (11.6-17.2); WHITE BLOOD COUNT 7.2 TH/MM3 (4.0-11.0)
[2017-03-16 15:59] LABS: HEMO FLAGS AUTO DIFF
[2017-03-16 16:04] LABS: BICARBONATE 23.8 MEQ/L (21.0-32.0); POTASSIUM 3.3 MEQ/L (3.5-5.1)
[2017-03-16] MEDS: MULTIVITAMINS/MINERALS THERAPEUTIC TAB PO SCH (16:21)
[2017-03-16] MEDS: THIAMINE HCL 100 MG TAB PO SCH (16:21)
[2017-03-16] MEDS: FOLIC ACID 1 MG TAB PO SCH (16:21)
[2017-03-16 16:32] LABS: BANDS 15 % (0-6); EOSINOPHILS 2 % (0-4); POLYS (SEG NEUTROPHILS) 69 % (16-70); WBC DIFF SAMPLE 100
[2017-03-16 16:33] LABS: PLATELET ESTIMATE SMEAR NORMAL (NORMAL); PLATELET MORPHOLOGY NORMAL (NORMAL); SCAN/DIFF FINAL DIFF MANUAL
--- NOTE | 2017-03-16 16:39 | EKG ---
Date Performed: 03/15/2017 Time Performed: 15:31:33 PTAGE: 36 years EKG: Sinus rhythm MODERATE T-WAVE ABNORMALITY, CONSIDER ANTERIOR ISCHEMIA ABNORMAL ECG PREVIOUS TRACING : 03/15/2017 15.12 DOCTOR: Stephan Almazan Interpretating Date/Time 03/18/2017 07:52:57
[2017-03-16] MEDS ORDERED: POTASSIUM CHLORIDE 10 MEQ CONTROLLED RELEASE TAB PO ONE (18:30)
[2017-03-16] MEDS ORDERED: diphenhydrAMINE HCL 25 MG CAP PO ONE (18:30)
[2017-03-16 22:59] LABS: LACTIC ACID GHOST NOT REPORTABLE
[2017-03-17] VITALS (7 sets, daily range): BP systolic 97–140; BP diastolic 50–83; PULSE 74–119; RESP 12–20; TEMP 96.7–98.8; O2SAT 92–99
[2017-03-17] MEDS: PIPERACIL-TAZO 3.375 GM PREMIX 50 ML IV SCH ×4 (00:52→22:11)
[2017-03-17] MEDS: SODIUM CHLOR 0.9% 1000 ML INJ 1,000 ML IV SCH ×3 (04:27→22:11)
[2017-03-17 08:13] LABS: AUTOMATED NEUTROPHIL # 5.5 TH/MM3 (1.8-7.7); BASOPHIL % 0.2 % (0.0-2.0); EOSINOPHIL # 0.1 TH/MM3 (0-0.4); EOSINOPHIL % 1.4 % (0.0-4.0); HEMATOCRIT 30.3 % (35.0-46.0); HEMO FLAGS DIFF FINAL; LYMPH % 11.8 % (9.0-44.0); LYMPHOCYTE # 0.9 TH/MM3 (1.0-4.8); MEAN CELL VOLUME 97.8 FL (80.0-100.0); MEAN CORPUSCULAR HEMOGLOBIN 33.1 PG (27.0-34.0); MEAN CORPUSCULAR HGB CONC 33.8 % (32.0-36.0); MONO % 14.6 % (0.0-8.0); PLATELET COUNT 197 TH/MM3 (150-450); RED CELL DISTRIBUTION WIDTH 14.4 % (11.6-17.2); WHITE BLOOD COUNT 7.6 TH/MM3 (4.0-11.0)
[2017-03-17 08:38] LABS: BICARBONATE 26.1 MEQ/L (21.0-32.0); POTASSIUM 3.3 MEQ/L (3.5-5.1)
[2017-03-17] MEDS ORDERED: REMOVE OLD PATCH T-DERMAL SCH (09:00)
[2017-03-17] MEDS: THIAMINE HCL 100 MG TAB PO SCH (09:03)
[2017-03-17] MEDS: FOLIC ACID 1 MG TAB PO SCH (09:03)
[2017-03-17] MEDS: MULTIVITAMINS/MINERALS THERAPEUTIC TAB PO SCH (09:03)
[2017-03-17] MEDS: REMOVE OLD PATCH T-DERMAL SCH ×2 (09:04→21:00)
[2017-03-17] MEDS: NICOTINE 21 MG/24 HR PATCH T-DERMAL SCH (09:04)
[2017-03-17] MEDS: QUEtiapine FUMARATE 100 MG TAB PO SCH ×2 (09:04→22:14)
[2017-03-17] MEDS: LACTOBACILLUS ACIDOPHILUS TAB PO SCH ×2 (09:04→22:13)
[2017-03-17] MEDS: CITALOPRAM HYDROBROMIDE 40 MG TAB PO SCH (09:04)
[2017-03-17] MEDS: metroNIDAZOLE 500 MG TAB PO SCH ×2 (09:04→22:14)
[2017-03-17] MEDS: DOCUSATE SODIUM 50 MG/SENNA 8.6 MG TAB PO SCH ×2 (09:05→22:12)
[2017-03-17] MEDS: SODIUM CHLORIDE 0.9% FLUSH 10 ML FLUSH IV FLUSH SCH ×2 (09:15→22:11)
--- NOTE | 2017-03-17 10:29 | HHI.FPPN ---
Subjective Remarks Patient was seen and examined this morning. Her pain is improved overall but she notes significant gas pains and flatulence. Last bowel movement was yesterday, small volume, hard in consistency. She is hesitant to have efforts to her bowel movements because of her abdominal and flank pain. She has pelvic pressure when she tries to defecate which makes her hesitant. She denies fevers , chills, nausea, vomiting, chest pain, shortness of breath. The flank pain transiently worsens with certain movements but is minimal at baseline. The abdominal pain, lower bilateral, is overall improved. She again asks to go outside for a cigarette. She states she has not yet had his CT scan as she does not know why. (Brynn Fonseca MD R1) Objective Vitals Vital Signs Date Time Temp Pulse Resp B/P Pulse Ox O2 Delivery O2 Flow Rate FiO2 03/17/17 08:00 98.3 74 12 140/83 92 03/17/17 04:00 98.7 98 18 97/50 97 03/17/17 00:55 97.4 116 20 128/79 94 03/16/17 22:48 20 03/16/17 20:48 100 21 03/16/17 20:00 99.3 115 20 129/91 100 03/16/17 17:18 99.5 03/16/17 15:30 100.3 128 20 136/77 97 03/16/17 11:30 97.7 125 20 141/93 100 I/O 03/16/17 03/16/17 03/16/17 03/17/17 03/17/17 03/17/17 07:00 15:00 23:00 07:00 15:00 23:00 Intake Total 400 ml 720 ml 1822 ml Balance 400 ml 720 ml 1822 ml Intake Oral 400 ml 720 ml 1000 ml IV Total 822 ml # Voids 2 (Brynn Fonseca MD R1) Result Diagram: 03/17/17 0750 03/17/17 0750 Imaging Last Impressions Renal Ultrasound 03/15/17 0000 Signed Impressions: Service Date/Time: Wednesday, March 15, 2017 15:42 - CONCLUSION: 1. Negative renal sonogram. 2. Cystic defects within the lumen of the urinary bladder posterior , possible cystoceles. Truong Chino MD Objective Remarks GENERAL: This is a well-nourished, well-developed patient, in no apparent distress. SKIN: No rashes, ecchymoses or lesions. Cool and dry. HEAD: Atraumatic. Normocephalic. No temporal or scalp tenderness. EYES: Pupils equal round and reactive. Extraocular motions intact. No scleral icterus. No injection or drainage. ENT: Nose without bleeding, purulent drainage or septal hematoma. Throat without erythema, tonsillar hypertrophy or exudate. Uvula midline. Airway patent. NECK: Trachea midline. No JVD or lymphadenopathy. Supple, nontender, no meningeal signs. CARDIOVASCULAR: Regular rate and rhythm without murmurs, gallops, or rubs. RESPIRATORY: Clear to auscultation. Good respiratory effort. Breath sounds equal bilaterally. No wheezes, rales, or rhonchi. GASTROINTESTINAL: Abdomen tense, tender globally, worse across lower abdomen, distended. Voluntary guarding. No CVA tenderness. No hepato-splenomegaly, or palpable masses. MUSCULOSKELETAL: Extremities without clubbing, cyanosis, or edema. No joint tenderness, effusion, or edema noted. No calf tenderness. NEUROLOGICAL: Awake and alert. Cranial nerves II through XII intact. Motor and sensory grossly within normal limits. Normal speech. Medications and IVs Inpatient Medications Acetaminophen (Tylenol) 650 mg Q4H PRN PO PAIN 1-2 OR TEMP >100.4F Last administered on 03/16/17 06:13; Start 03/15/17 at 11:30 Acetaminophen/ Hydrocodone Bitart ([place] 5-325 Mg) 1 tab Q4H PRN PO PAIN SCALE 5-10 Last administered on 03/16/17 02:45; Start 03/15/17 at 15:30; Stop 03/16/17 at 11:34; Status DC Bisacodyl (Dulcolax Supp) 10 mg DAILY PRN RECTAL SEVERE CONSITIPATION; Start at 11:30 Cefoxitin Sodium 2 gm/Sodium Chloride 100 ml @ 200 mls/hr ONCE ONCE IV Last administered on 03/15/17 11:15; Start 03/15/17 at 11:15; Stop 03/15/17 at 11:44; Status DC Ceftriaxone Sodium 1000 mg 1,000 mg ONCE ONCE IM ; Start 03/15/17 at 10:45; Stop 03/15/17 at 11:05; Status DC Ceftriaxone Sodium 1000 mg/ Sodium Chloride 100 ml @ 200 mls/hr Q24H IV Last administered on 03/15/17 18:25; Start 03/15/17 at 17:00; Stop 03/16/17 at 08:19; Status DC Chlordiazepoxide (Librium) 5 mg TID PO Last administered on 03/17/17 09:04; Start 03/16/17 at 13:00 Citalopram Hydrobromide (CeleXA) 40 mg DAILY@08 PO Last administered on 09:04; Start 03/16/17 at 08:00 Diphenhydramine HCl (Benadryl) 25 mg ONCE ONCE PO Last administered on 18:26; Start 03/16/17 at 18:30; Stop 03/16/17 at 18:31; Status DC Doxycycline Hyclate (Vibratab) 100 mg Q12HR PO Last administered on 03/15/17 21 :07; Start 03/15/17 at 21:00; Stop 03/16/17 at 08:17; Status DC Doxycycline Hyclate 100 mg/ Sodium Chloride 100 ml @ 100 mls/hr ONCE ONCE IV Last administered on 03/15/17 11:15; Start 03/15/17 at 11:15; Stop 03/15/17 at 12: 36; Status DC Flumazenil (Romazicon Inj) 0.2 mg Q1M PRN IV PUSH SEE LABEL COMMENTS; Start 03/15/17 at 13:00 Folic Acid (Folate) 1 mg DAILY PO Last administered on 03/17/17 09:03; Start at 15:00; Stop 03/21/17 at 14:59 Ketorolac Tromethamine (Toradol Inj) 30 mg Q6HR IV PUSH Last administered on 12:30; Start 03/15/17 at 12:30; Stop 03/20/17 at 12:29; Status Hold Lactobacillus Acidophilus 2 tab 2 tab Q12HR PO Last administered on 03/17/17 09 :04; Start 03/16/17 at 09:00 Lactulose (Lactulose Liq) 30 ml DAILY PRN PO SEVERE CONSITIPATION; Start at 11:30 Lidocaine HCl (Xylocaine 1% Inj (50 ml)) 2.1 ml ONCE ONCE IM ; Start 03/15/17 at 10:45; Stop 03/15/17 at 11:05; Status DC Lorazepam (Ativan Inj) 2 mg Q15M PRN IV PUSH CIWA > 20; Start 03/15/17 at 13:00 Lorazepam (Ativan) 2 mg Q2H PRN PO CIWA 11-14; Start 03/15/17 at 13:00 Magnesium Hydroxide (Milk Of Magnelvis Liq) 30 ml Q12H PRN PO MILD - MODERATE CONSTIPATION; Start 03/15/17 at 11:30; Stop 03/15/17 at 12:18; Status DC Metronidazole (Flagyl) 500 mg BID PO Last administered on 03/17/17 09:04; Start 03/16/17 at 13:30 Miscellaneous (Pill Splitter) 1 ea UNSCH PRN OTHER SEE LABEL COMMENTS; Start at 21:00 Miscellaneous Information 1 HS T-DERMAL Last administered on 03/16/17 19:53; Start 03/16/17 at 21:00 Miscellaneous Information 1 1 DAILY T-DERMAL Last administered on 03/17/17 09: 04; Start 03/16/17 at 09:00 Multivitamins/ Minerals Therapeutic (Theragran M Tab) 1 tab DAILY PO Last administered on 03/17/17 09:03; Start 03/16/17 at 15:00; Stop 03/21/17 at 14:59 Naloxone HCl (Narcan Inj) 0.4 mg UNSCH PRN IV SEE LABEL COMMENTS; Start at 15:30 Nicotine (Habitrol 21 Mg Patch.24 Hr) 1 patch DAILY T-DERMAL Last administered on 03/17/17 09:04; Start 03/16/17 at 10:30 Nicotine (Habitrol 7 Mg Patch.24 Hr) 1 patch DAILY T-DERMAL Last administered on 03/16/17 08:55; Start 03/15/17 at 18:00; Stop 03/16/17 at 10:26; Status DC Ondansetron HCl (Zofran Inj) 4 mg Q6H PRN IVP NAUSEA OR VOMITING Last administered on 03/16/17 19:56; Start 03/15/17 at 11:30 Oxycodone/ Acetaminophen (Percocet 5-325 Mg) 1 tab Q6H PRN PO PAIN SCALE 3 TO 5; Start 03/16/17 at 11:45 Oxycodone/ Acetaminophen (Percocet 10-325 Mg) 1 tab Q6H PRN PO PAIN SCALE 6 TO 10 Last administered on 03/16/17 21:20; Start 03/16/17 at 11:45 Piperacillin Sod/ Tazobactam Sod (Zosyn 3.375 Gm Premix) 50 ml @ 100 mls/hr Q6H IV Last administered on 03/17/17 09:03; Start 03/16/17 at 08:00 Potassium Chloride 40 meq 40 meq ONCE ONCE PO Last administered on 03/15/17 16 :57; Start 03/15/17 at 15:00; Stop 03/15/17 at 16:31; Status DC Potassium Chloride/Lactated Ringer's (KCl Inj/Lr 1000 ml Inj) 1,015 ml @ 42 mls /hr Q24H IV Last administered on 03/16/17 13:44; Start 03/15/17 at 11:15; Stop 03/16/17 at 14:55; Status DC Potassium Phosphate/Sodium Chloride (Potassium Phosphate Inj/NS 250 ml Inj) 260 ml @ 43.333 mls/ hr ONCE ONCE IV Last administered on 03/16/17 02:16; Start 03/16/17 at 01:00; Stop 03/16/17 at 06:59; Status DC Potassium Chloride (KCl) 40 meq ONCE ONCE PO Last administered on 03/16/17 18: 26; Start 03/16/17 at 18:30; Stop 03/16/17 at 18:31; Status DC Quetiapine Fumarate (SEROquel) 150 mg BID PO Last administered on 03/17/17 09: 04; Start 03/15/17 at 21:00 Senna/Docusate Sodium (Lisa-Colace) 2 tab ONCE ONCE PO Last administered on 16:57; Start 03/15/17 at 12:45; Stop 03/15/17 at 12:46; Status DC Sennosides (Senokot) 17.2 mg Q12H PRN PO MODERATE - SEVERE CONSTIPATION; Start 03/15/17 at 11:30 Sodium Chloride (NS 1000 ml Inj) 1,000 ml @ 999 mls/hr BOLUS ONCE IV Last administered on 03/15/17 16:57; Start 03/15/17 at 15:30; Stop 03/15/17 at 16:32; Status DC Sodium Chloride (NS Flush) 2 ml BID IV FLUSH Last administered on 03/17/17 09: 15; Start 03/15/17 at 21:00 Thiamine HCl (Vitamin B1) 100 mg DAILY PO Last administered on 03/17/17 09:03; Start 03/16/17 at 15:00 (Brynn Fonseca MD R1) Urinary Catheter: No (Brynn Fonseca MD R1) Vascular Central Line Catheter: No (Brynn Fonseca MD R1) A/P Assessment and Plan Patient is a 36-year-old female who presented to the ED with complaints of abdominal and pelvic pain x 3 days. In the ED, exam was positive for PID and UA showed evidence of UTI. Critical K level was noted at admission. Patient admitted to observation initially, and admitted to inpatient status on due to IV antibiotic administration, elevated lactic acid, concern for sepsis. Discharge Planning Unknown. Her workup is still pending. Continue IV antibiotics. CT scan with notable findings warranting further inpatient workup. (Brynn Fonseca MD R1) Attending Attestation Patient seen and examined. Case reviewed and discussed with the resident team. Agree with plan of care as discussed with me and documented in the resident note. (Karen Cameron MD) Problem List: (1) Pelvic mass in female Status: Acute Plan: * Pelvic ultrasound ordered and pending * Medical oncology consulted 03/17/17. Discussed case with Dr. Perkins who was on- call at this time, will evaluate patient. * AFP, CA 125, hCG, and LDH ordered as initial tumor workup * CXR also ordered and unremarkable * Note, patient was told she had something which was 9cm in her belly in October 2016 which she was supposed to get worked up, thus records were requested from [facility] Course: CT scan was obtained due to patient having distended abdomen without obvious source. * Large mass in the pelvis measuring 13.211.8 cm, composed of a combination of a large cysts measuring up to 7.67.9 cm but additional solid component is present. Solid component appears to have a linear hypodense area. Masses possibly are related to the bowel or fallopian tube, further elucidation by other imaging studies recommended. 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 * No inguinal lymphadenopathy noted. (2) Urinary tract infection Status: Acute Plan: Plan: * Concern for pyelonephritiscontinue Zosyn and Flagyl as below. * Continue maintenance fluids to flush kidneys Hospital Course: At admission, patient complained of severe pain with urination. * Urine culture positive for Gardnerella Vaginalis. * Vitals at admission: T 99.1, P 130, RR 20, BP 112/70, O2 99 on room air * Notable labs at admission: WBC 12.7, UA: positive for RBCs, WBCs, and leukocyte esterase, Clue Cells negative, Vaginal Trichomonas negative, Vaginal Yeast negative Suspicion for pyelonephritis/sepsis: * Kidney US negative * Bladder US showed cystic defects with lumen of urinary bladder posterior, possible cystoceles - finding may predispose patient to recurrent UTIs * Temperature Max in 24 hr: 100.3 F * Pulse Range in 24 hr: 98 - 130 bpm, noted. Possibly related to EtoH withdrawal * Lactic Acid 2.4 -> 3.0H, lactic acidemia resolved Antibiotic Course: * Switched to Ceftriaxone 1,000mg q24hr IV and doxycycline 100 mg q12hr PO on . * Patient received Cefoxitin 2gm once IV and doxycycline 100mg once IV in the ED. * Patient now on Zosyn and Flagyl due to suspicion for pyelonephritis and confirmed BV. (3) Bacterial vaginosis Status: Acute Plan: Urine Culture: Gardnerella Vaginalis Started Flagyl 500 mg BID PO 03/16/17, stop date placed for 03/22/17. Will give script upon discharge to complete this course (4) Pelvic infection in female Status: Acute Plan: PID unlikely based on lab tests and clinical picture. * Chlamydia negative * N. gonorrhoeae negative Notable labs at admission: * WBC 12.7 * UA: positive for RBCs, WBCs, and leukocyte esterase * Clue Cells negative * Vaginal Trichomonas negative * Vaginal Yeast negative (5) Hypokalemia Status: Acute Plan: Give 30meq K by mouth today. Monitor BMP. Hospital Course: * In ED, K of 2.9 was noted. Patient was asymptomatic. Initially corrected, but returned to mild hypokalemia 03/16/17. * Etiology unclear. Possibly related to nutrition * Patient received Potassium Chloride 30 meq once IV and Potassium Chloride 40 meq once PO on 03/15. Repeat K level remained at 2.9. An additional order for Potassium Chloride 40 meq once PO was placed. Repeat K was 3.6. EKG showed no evidence of diffuse t wave changes (6) GEGE (acute kidney injury) Status: Resolved Plan: Continued maintenance fluids. Etiology unclear * Possible dehydration associated with excessive alcohol intake Hospital Course * Patient received NS bolus and was started on maintenance fluid * On admission, Cr 1.01H, BUN 8 and estimated GFR 75L; repeat Cr 1.4, BUN 5L and 52L. * MIVF at 100cc/hr to flush kidneys (7) Alcohol abuse Status: Chronic Plan: Started on CIWA protocol at admission. Started on Librium 5mg TID PO on , consider taper over hospital course. Background: * Patient admits to excessive drinking. * Beer x1/day plus shots of Vodka x2; shot = red solo cup * Denies hx of alcohol withdrawal seizures or DT. (8) Tobacco abuse Status: Chronic Plan: Patient admits to smoking 1/2 pack/day since she was 19 years old. She wants to smoke and requests to step outside for a cigarette. She has been counseled that this is against policy. Nicotine patch high dose daily ordered. (9) Fluid, Electrolyte, Nutrition and Prophylaxis Status: Acute Plan: Fluid: * Maintenance fluid: NS 100 mls/hr Electrolytes * Potassium - see hypokalemia * Phosphorus normalized, will monitor * Replete when necessary Nutrition: * Regular diet. DVT Prophylaxis: * Deferred initially due to ambulatory. Will start Lovenox 40mg subQ q24hr on 06/25 given mass in abdomen GI Prophylaxis: * Not indicated at this time. (Brynn Fonseca MD R1) Problem Qualifiers (1) Urinary tract infection: Qualified Code: N30.01 - Acute cystitis with hematuria Brynn Fonseca MD R1 Mar 17, 2017 10:29 Karen Cameron MD Mar 18, 2017 09:30
[2017-03-17] MEDS ORDERED: IOHEXOL 350 MG/ML 10 ML VIAL (for RAD DIAG) IV ONE (10:44)
--- NOTE | 2017-03-17 11:06 | RADRPT ---
EXAM DATE/TIME: 03/17/2017 10:28 [facility] COMPARISON: No previous studies available for comparison. INDICATIONS : Abdomen pain. IV CONTRAST: 100 cc Omnipaque 350 (iohexol) IV ORAL CONTRAST: No oral contrast ingested. RADIATION DOSE: 9.96 CTDIvol (mGy) MEDICAL HISTORY : Ovarian cyst. SURGICAL HISTORY : None. ENCOUNTER: Initial ACUITY: 1 day PAIN SCALE: 10/10 LOCATION: Bilateral abdomen TECHNIQUE: Volumetric scanning of the abdomen and pelvis was performed. Using automated exposure control and ad justment of the mA and/or kV according to patient size, radiation dose was kept as low as reasonably achievable to obtain optimal diagnostic quality images. DICOM format image data is available electro nically for review and comparison. FINDINGS: LOWER LUNGS: The visualized lower lungs are clear. Small left pleural effusion LIVER: Homogeneous density without lesion. There is no dilation of the biliary tree. No calcified gallston es. SPLEEN: Normal size without lesion. PANCREAS: Within normal limits. KIDNEYS: Normal in size and shape. There is no mass, stone or hydronephrosis. ADRENAL GLANDS: Within normal limits. VASCULAR: There is no aortic aneurysm. BOWEL/MESENTERY: The stomach, small bowel, and colon demonstrate no acute abnormality. There is no free intraperitone al air or fluid. ABDOMINAL WALL: Superiorly on the left there some questionable fluid anterior to the rib cage within the abdominal mu sculature. RETROPERITONEUM: There is no lymphadenopathy. BLADDER: No wall thickening or mass. REPRODUCTIVE: There is a large mass in the pelvis measuring 13.2 x 11.8 cm. Its combination of very large cysts mao suring up to 7.6 x 7.9 cm but an additional solid component anteriorly. The solid component appears t o have a linear hypodense area in the mid part suggesting is probably the uterus multiple leiomyoma a long its anterior wall. The large cystic areas to the mostly to the left could be related to either dilated fluid filled loops of small bowel or conceivably a dilated fallopian tube. Correlate for sym ptoms of a tubo-ovarian abscess. Repeat study with oral contrast would be helpful to define the loop s of bowel versus a possible dilated fluid filled fallopian tube. There is also a prominent fatty area in the right side of the mass which is a possible teratoma. It has a small soft tissue mural nodule. INGUINAL: There is no lymphadenopathy or hernia. MUSCULOSKELETAL: Within normal limits for patient age. CONCLUSION: Large multiloculated mass arising in the pelvis. There numerous components to the mass. There is a s oft tissue density solid component which appears to be the uterus with numerous hypodense leiomyoma s cattered throughout the wall. It surrounded superiorly posteriorly and to the left by a large tubula r hypodense collection without identifiable left ovary. Could be a tubo-ovarian abscess. On the right side of the mass is a fatty area measuring 4.8 x 4.5 cm possible teratoma. Repeat study with oral contrast may be helpful. MEDICAL LEAD referral is recommended. There is also fluid along the anterior chest superiorly within the abdominal musculature just superfi cial to the ribs as well as a small right pleural effusion. Marty Anguiano MD on March 17, 2017 at 10:55 Board Certified Radiologist. This report was verified electronically.
--- NOTE | 2017-03-17 12:07 | RADRPT ---
EXAM DATE/TIME: 03/17/2017 11:51 [facility] COMPARISON: No previous studies available for comparison. INDICATIONS : Short of breath MEDICAL HISTORY : Ovarian cyst. SURGICAL HISTORY : None. ENCOUNTER: Initial ACUITY: 2 days PAIN SCORE: 0/10 LOCATION: chest FINDINGS: A single view of the chest demonstrates the lungs to be symmetrically aerated without evidence of mas s, infiltrate or effusion. The cardiomediastinal contours are unremarkable. Osseous structures are intact. CONCLUSION: Normal examination. Marty Anguiano MD on March 17, 2017 at 12:05 Board Certified Radiologist. This report was verified electronically.
[2017-03-17] MEDS ORDERED: POTASSIUM CHLORIDE 10 MEQ CONTROLLED RELEASE TAB PO ONE (13:45)
[2017-03-17] MEDS: ENOXAPARIN SODIUM 40 MG/0.4 ML SYRINGE SQ SCH (14:07)
[2017-03-17] MEDS: oxyCODONE/ACETAMINOPHEN 10 MG/325 MG TAB PO PRN (14:11)
--- NOTE | 2017-03-17 14:25 | RADRPT ---
EXAM DATE/TIME: 03/17/2017 13:39 [facility] COMPARISON: CT ABDOMEN & PELVIS W CONTRAST, March 17, 2017, 10:28. INDICATIONS : Pelvic pain. Abnormal CT. MEDICAL HISTORY : Ovarian cysts. Pelvic pain. SURGICAL HISTORY : None. ENCOUNTER: Initial ACUITY: 2 weeks PAIN SCORE: 8/10 LOCATION: Bilateral pelvis MEASUREMENTS: UTERUS: 10.7 x 3.5 x 3.3 cm ENDOMETRIAL STRIPE: 2 mm RIGHT OVARY: Not visualized. LEFT OVARY: Not visualized. FINDINGS: UTERUS: The myometrium has homogeneous echotexture without mass. RIGHT OVARY: Complex appearance of the right adnexa with both cysts and a complex area measuring 4.8 x 4.5 cm. LEFT OVARY: Predominantly cystic areas with debris on the left measuring 9.6 x 8.1 x 7.8 and 13.8 x 6.1 x 12.5 cm MISCELLANEOUS: No free fluid. CONCLUSION: 1. Complex appearance to the adnexa bilaterally. The tubular cystic structures in the adnexal region identified on both CT and ultrasound could represent tubo-ovarian abscess. 2. In addition, there is a fatty lesion in the right adnexal region measuring 4.5 x 4.8 cm which coul d represent a dermoid. 3. The uterus is sonographically intact. No free fluid. Yassine Strong MD on March 17, 2017 at 14:17 Board Certified Radiologist. This report was verified electronically.
[2017-03-17] MEDS ORDERED: POTASSIUM PHOSPHATE MONOBASIC 500 MG TAB PO SCH (21:00)
[2017-03-18] VITALS: BP 116/74; PULSE 108; RESP 18; TEMP 99.7; O2SAT 98
[2017-03-18] MEDS: PIPERACIL-TAZO 3.375 GM PREMIX 50 ML IV SCH ×3 (02:32→14:06)
[2017-03-18 04:00] VITALS: BP 101/60; PULSE 92; RESP 16; TEMP 97.7; O2SAT 100
[2017-03-18] MEDS: oxyCODONE/ACETAMINOPHEN 10 MG/325 MG TAB PO PRN ×2 (04:24→10:16)
[2017-03-18] MEDS: MULTIVITAMINS/MINERALS THERAPEUTIC TAB PO SCH (07:59)
[2017-03-18] MEDS: LACTOBACILLUS ACIDOPHILUS TAB PO SCH (07:59)
[2017-03-18] MEDS: FOLIC ACID 1 MG TAB PO SCH (07:59)
[2017-03-18] MEDS: CITALOPRAM HYDROBROMIDE 40 MG TAB PO SCH (07:59)
[2017-03-18] MEDS: QUEtiapine FUMARATE 100 MG TAB PO SCH (07:59)
[2017-03-18] MEDS: THIAMINE HCL 100 MG TAB PO SCH (07:59)
[2017-03-18 08:00] VITALS: BP 102/69; PULSE 98; RESP 16; TEMP 97.3; O2SAT 99
[2017-03-18] MEDS: metroNIDAZOLE 500 MG TAB PO SCH (08:00)
[2017-03-18] MEDS: REMOVE OLD PATCH T-DERMAL SCH (08:00)
[2017-03-18] MEDS: DOCUSATE SODIUM 50 MG/SENNA 8.6 MG TAB PO SCH (08:00)
--- NOTE | 2017-03-18 08:54 | PD.CONS ---
HPI Travel History International Travel<30 Days: No Contact w/Intl Traveler<30Days: No Known Affected Area: No History of Present Illness HPI This patient is a 36-year-old 0 her last normal menstrual period was sometime in January patient initially seen on March 14, 2017 with the chief complaint of lower abdominal pain. Pain was described as sharp intermittent lasting for the past 3 days did not take her temperature at home however she felt hot denies any chills the pain is radiating to her lower back nothing makes it better nothing makes it worse patient has a history of ovarian cysts and had previously been referred to an [employer] however she did not follow-up to have her blood work or labs done. Patient seen in the emergency room and initially thought to have pyelonephritis versus PID was placed on antibiotic therapy with Zosyn and Flagyl pelvic CAT scan was done and subsequently a pelvic ultrasound that demonstrated a large left cystic mass 9 x 8 x 7 and 13 x 6 x 12 the right ovary showing complex areas measuring 4.8 x 4.5 some fatty components within the cystic structure on the left possible dermoid History Past Medical History Narrative Medical Patient has no known drug allergies Patient has had some psychological problems with depression and is presently on Seroquel 300 mg by mouth daily at bedtime and Celexa 40 mg by mouth daily No major medical problems no hypertension or diabetes History of recurrent urinary tract infections Obstetric History Obstetric History Has never been Past Surgical History Narrative Surgical Umbilical hernia repair as a child Family History Family History: Negative Social History Alcohol Use: Yes Tobacco Use: Yes (patient smokes a half a pack of cigarettes per day) Substance Abuse: Yes (she admits to using marijuana and cocaine) Allergies-Medications (Allergen,Severity, Reaction): Coded Allergies: No Known Allergies (Unverified , 03/15/17) Home Meds Active Scripts Nitrofurantoin Monohydrate Macrocrystals (Macrobid)100 Mg [id number] Mg PO BID #14 CAP Ref 0 Prov:Momo Miner MD 03/15/17 Naproxen 500 Mg Zgz628 Mg PO BID #20 TAB Ref 0 Prov:Momo Miner MD 03/15/17 Doxycycline Hyclate 100 Mg Cje079 Mg PO BID #28 CAP Ref 0 Prov:Momo Miner MD 03/15/17 Reported Medications Quetiapine XR (Seroquel XR)300 Mg [id number] Mg PO HS #30 TAB Ref 0 03/15/17 Citalopram (Celexa)40 Mg Tab40 Mg PO DAILY #30 TAB Ref 0 03/15/17 Review of Systems General / Constitutional: Other (has been feeling hot) Gastrointestinal: Abdominal Pain (as per history of present illness), Constipation (previously constipation was given stool softeners suppositories and had several bowel movements since that time) Genitourinary: Urgency, Frequency, Dysuria Musculoskeletal: Weakness, Other (generalized body aches and pains) Psychiatric: Depression Physical Exam Vital Signs Date Time Temp Pulse Resp B/P Pulse Ox O2 Delivery O2 Flow Rate FiO2 03/18/17 04:00 97.7 92 16 101/60 100 03/18/17 00:27 16 03/18/17 00:00 99.7 108 18 116/74 98 03/17/17 20:14 99 21 03/17/17 20:00 96.7 101 18 104/65 98 03/17/17 16:00 97.6 103 16 127/60 98 03/17/17 12:00 98.8 119 20 117/69 98 Narrative GENERAL: Well-nourished, well-developed patient. Patient is alert oriented 3 and cooperative her affect is somewhat flat moderately good historian although some of the dates and times are confusing SKIN: Warm and dry. HEAD: Normocephalic and atraumatic. EYES: No scleral icterus. No injection or drainage. ENT: No nasal drainage noted. Mucous membranes pink. Airway patent. NECK: Supple, trachea midline. No JVD. CARDIOVASCULAR: Regular rate and rhythm without murmurs, gallops, or rubs. RESPIRATORY: Breath sounds equal bilaterally. No accessory muscle use. ABDOMEN/GI: Abdomen is slightly distended, bowel sounds are positive, soft no rebound tenderness mildly tenderness in the right and left lower quadrant Gravid to [-] weeks size Fundal Height: [-] GENITOURINARY: Pelvic exam is deferred to the ultrasound results External Genitalia: intact and normal in appearance EXTREMITIES: No cyanosis or edema. BACK: Nontender without obvious deformity. No CVA tenderness. NEUROLOGICAL: Awake and alert. Motor and sensory grossly within normal limits. Five out of 5 muscle strength in all muscle groups. Normal speech. Data Data Vital Signs Reviewed: Yes (temperature max within the past 24 hours is 99.7 blood pressure 104/65 temperatures 96.7 respiration is 18 O2 sat is 98%) Orders Iohexol 350 Inj (Omnipaque 350 Inj) (03/17/17 10:44) Chest, Single Ap (03/17/17 ) Us Pelvis Comp Soft Work Wrapper Layer And Examiner/Non-Preg (03/17/17 11:48) Cancer Antigen 125 (03/18/17 06:00) Afp, Tumor Marker (03/18/17 06:00) Beta Hcg Tumor Marker (03/18/17 06:00) Ldh Serum (03/18/17 06:00) Potassium Phosphate (K-Phos) (03/17/17 21:00) Phosphorus (Po4) (03/17/17 12:09) Consult Medical Oncology (03/17/17 ) (Hub Use Only)Inp Phy Cons/Ref (03/17/17 ) Complete Blood Count With Diff (03/18/17 06:00) Comprehensive Metabolic Panel (03/18/17 06:00) Phosphorus (Po4) (03/18/17 06:00) Magnesium (Mg) (03/18/17 06:00) ^ Obtain (03/17/17 13:17) Potassium Chloride (Kcl) (03/17/17 13:45) Enoxaparin Inj (Lovenox Inj) (03/17/17 14:00) Labs Ultrasound also demonstrates the right kidney is normal left kidney is normal however there is a 3 cm cystocele of the bladder Last 48 hours Impressions Pelvis Ultrasound 03/17/17 1148 Signed Impressions: Service Date/Time: Friday, March 17, 2017 13:39 - CONCLUSION: 1. Complex appearance to the adnexa bilaterally. The tubular cystic structures in the adnexal region identified on both CT and ultrasound could represent tubo- ovarian abscess. 2. In addition, there is a fatty lesion in the right adnexal region measuring 4.5 x 4.8 cm which could represent a dermoid. 3. The uterus is sonographically intact. No free fluid. Yassine Strong MD Chest X-Ray 03/17/17 0000 Signed Impressions: Service Date/Time: Friday, March 17, 2017 11:51 - CONCLUSION: Normal examination. Marty Anguiano MD Abdomen/Pelvis CT 03/17/17 0000 Signed Impressions: Service Date/Time: Friday, March 17, 2017 10:28 - CONCLUSION: Large multiloculated mass arising in the pelvis. There numerous components to the mass. There is a soft tissue density solid component which appears to be the uterus with numerous hypodense leiomyoma scattered throughout the wall. It surrounded superiorly posteriorly and to the left by a large tubular hypodense collection without identifiable left ovary. Could be a tubo-ovarian abscess. On the right side of the mass is a fatty area measuring 4.8 x 4.5 cm possible teratoma. Repeat study with oral contrast may be helpful. [employer] referral is recommended. There is also fluid along the anterior chest superiorly within the abdominal musculature just superficial to the ribs as well as a small right pleural effusion. Marty Anguiano MD Last white count was 7.6 this is decreased from 12.7 last potassium was 3.3 Last 24 hours Impressions Pelvis Ultrasound 03/17/17 1148 Signed Impressions: Service Date/Time: Friday, March 17, 2017 13:39 - CONCLUSION: 1. Complex appearance to the adnexa bilaterally. The tubular cystic structures in the adnexal region identified on both CT and ultrasound could represent tubo- ovarian abscess. 2. In addition, there is a fatty lesion in the right adnexal region measuring 4.5 x 4.8 cm which could represent a dermoid. 3. The uterus is sonographically intact. No free fluid. Yassine Strong MD Laboratory Tests Test 03/15/17 03/15/17 03/15/17 03/15/17 09:30 13:29 18:11 21:01 White Blood Count 12.7 TH/MM3 (4.0-11.0) Red Blood Count 3.63 MIL/MM3 (4.00-5.30) Neutrophils (%) (Auto) 90.3 % (16.0-70.0) Lymphocytes (%) (Auto) 5.5 % (9.0-44.0) Neutrophils # (Auto) 11.5 TH/MM3 (1.8-7.7) Lymphocytes # (Auto) 0.7 TH/MM3 (1.0-4.8) Urine Turbidity HAZY (CLEAR) Urine Protein 30 mg/dL (NEG-TRACE) Urine Ketones TRACE mg/dL (NEG) Urine Occult Blood MOD (NEG) Urine Urobilinogen 8.0 MG/DL (LESS THAN 2.0) Urine Leukocyte Esterase MOD (NEG) Urine RBC 60 /hpf (0-3) Urine WBC 12 /hpf (0-5) Urine Bacteria RARE /hpf (NONE) Urine Mucus FEW /lpf (OCC) Sodium Level 132 MEQ/L 135 MEQ/L (136-145) (136-145) Potassium Level 2.9 MEQ/L 2.9 MEQ/L (3.5-5.1) (3.5-5.1) Creatinine 1.01 MG/DL 1.40 MG/DL (0.50-1.00) (0.50-1.00) Estimat Glomerular Filtration 75 ML/MIN (>89) 52 ML/MIN (>89) 88 ML/MIN (>89) Rate Random Glucose 142 MG/DL (74-106) Blood Urea Nitrogen 5 MG/DL (7-18) Direct Bilirubin 0.3 MG/DL (0.0-0.2) Aspartate Amino Transf 88 U/L (15-37) (AST/SGOT) Troponin I LESS THAN 0.02 NG/ML (0.02-0.05) Albumin 3.1 GM/DL (3.4-5.0) Carbon Dioxide Level 20.5 MEQ/L (21.0-32.0) Phosphorus Level 1.6 MG/DL (2.5-4.9) Lactic Acid Level 2.4 mmol/L (0.4-2.0) Test 03/16/17 03/16/17 03/16/17 03/17/17 04:11 14:41 20:55 07:50 Lactic Acid Level 3.0 mmol/L 2.4 mmol/L (0.4-2.0) (0.4-2.0) Red Blood Count 3.23 MIL/MM3 3.10 MIL/MM3 (4.00-5.30) (4.00-5.30) Hemoglobin 10.5 GM/DL 10.3 GM/DL (11.6-15.3) (11.6-15.3) Hematocrit 32.0 % 30.3 % (35.0-46.0) (35.0-46.0) Neutrophils (%) (Auto) 81.0 % 72.0 % (16.0-70.0) (16.0-70.0) Monocytes (%) (Auto) 8.3 % (0.0-8.0) 14.6 % (0.0-8.0) Lymphocytes # (Auto) 0.7 TH/MM3 0.9 TH/MM3 (1.0-4.8) (1.0-4.8) Band Neutrophils % 15 % (0-6) Potassium Level 3.3 MEQ/L 3.3 MEQ/L (3.5-5.1) (3.5-5.1) Blood Urea Nitrogen 2 MG/DL (7-18) 2 MG/DL (7-18) Random Glucose 115 MG/DL (74-106) Phosphorus Level 1.4 MG/DL (2.5-4.9) Monocytes # (Auto) 1.1 TH/MM3 (0-0.9) Calcium Level 8.3 MG/DL (8.5-10.1) Date/Time Procedure Status Source Growth 03/16/17 14:41 Aerobic Blood Culture - Preliminary Resulted Blood Peripheral NO GROWTH IN 1 DAY 03/16/17 14:41 Anaerobic Blood Culture - Preliminary Resulted Blood Peripheral NO GROWTH IN 1 DAY 03/15/17 09:30 Urine Culture - Final Complete Urine Clean Catch Gardnerella Vaginalis MDM Medical Record Reviewed: Yes Interpretation(s) 36-year-old 0 with pelvic mass Right showing complex areas measuring 4.8 x 4.5 left showing cystic solid areas measuring 9.6 x 8 x 7.8 and 13 x 6 x 12 Findings possibly consistent with dermoid in view of the fatty content Pelvic inflammation History of depression History of cigarette smoking History of drug use History of frequent urinary tract infections Cystocele Noncompliance UTI Plan Plan; from the [employer] point of view specifically the pelvic mass Remainder of the management is per the family practice team Dr. Akiko Huerta is covering the [facility] service I've spoken with Dr. Huerta and have referred this patient to her for possible laparoscopy for removal of the ovarian cysts Spoken with Dr. Soares she will help the patient facilitate the appointment with Dr. Huerta Case management consult for financial assistance If patient clinically improved and condition is stable Dr. Huerta agrees that the procedure can be done as an outpatient Admitting diagnosis: PID, UTI, Hypokalemia pelvic Mass. rule out dermoid cyst, cystocele Scripts Nitrofurantoin Monohydrate Macrocrystals (Macrobid)100 Mg Uef506 Mg PO BID #14 CAP Ref 0 Prov:Momo Miner MD 03/15/17 Naproxen 500 Mg Nlp527 Mg PO BID #20 TAB Ref 0 Prov:Momo Miner MD 03/15/17 Doxycycline Hyclate 100 Mg Oiv598 Mg PO BID #28 CAP Ref 0 Prov:Momo Miner MD 03/15/17 Additional Instructions: Have your partner treated. Safe sex. Follow up for [facility]. Lali Reina MD Mar 18, 2017 08:54
[2017-03-18] MEDS: SODIUM CHLORIDE 0.9% FLUSH 10 ML FLUSH IV FLUSH SCH (09:05)
[2017-03-18] MEDS: NICOTINE 21 MG/24 HR PATCH T-DERMAL SCH (09:05)
[2017-03-18] MEDS: SODIUM CHLOR 0.9% 1000 ML INJ 1,000 ML IV SCH (09:06)
[2017-03-18 10:20] LABS: HEMATOCRIT 32.4 % (35.0-46.0); MEAN CELL VOLUME 98.9 FL (80.0-100.0); MEAN CORPUSCULAR HEMOGLOBIN 32.2 PG (27.0-34.0); MEAN CORPUSCULAR HGB CONC 32.6 % (32.0-36.0); PLATELET COUNT 197 TH/MM3 (150-450); RED BLOOD COUNT 3.27 MIL/MM3 (4.00-5.30); RED CELL DISTRIBUTION WIDTH 14.7 % (11.6-17.2); WHITE BLOOD COUNT 6.9 TH/MM3 (4.0-11.0)
[2017-03-18 10:29] LABS: HEMO FLAGS AUTO DIFF
[2017-03-18 10:57] LABS: ALT (GPT) 55 U/L (10-53); ANION GAP 11 MEQ/L (5-15); AST (GOT) 37 U/L (15-37); BICARBONATE 23.2 MEQ/L (21.0-32.0); BLOOD UREA NITROGEN 2 MG/DL (7-18); CHLORIDE 104 MEQ/L (98-107); GLOMERULAR FILTRATION RATE 102 ML/MIN (>89); LDH SERUM 196 U/L (84-246); MAGNESIUM 1.2 MG/DL (1.5-2.5); POTASSIUM 3.5 MEQ/L (3.5-5.1); SODIUM (NA) 138 MEQ/L (136-145)
[2017-03-18 10:58] LABS: BANDS 13 % (0-6); BASOPHILS 1 % (0-2); EOSINOPHILS 1 % (0-4); MYELOCYTES 1 % (0-0); POLYS (SEG NEUTROPHILS) 58 % (16-70); TOXIC VACUOLATION PRESENT (NONE SEEN); WBC DIFF SAMPLE 100
[2017-03-18 11:00] LABS: PLATELET ESTIMATE SMEAR NORMAL (NORMAL); PLATELET MORPHOLOGY NORMAL (NORMAL); SCAN/DIFF FINAL DIFF MANUAL
[2017-03-18 11:02] LABS: ALKALINE PHOSPHATASE 116 U/L (45-117); BETA HCG TUMOR MARKER LESS THAN 1 MIU/ML (0-5); TOTAL BILIRUBIN ADULT 0.9 MG/DL (0.2-1.0)
[2017-03-18 12:00] VITALS: BP 101/64; PULSE 106; RESP 16; TEMP 98.6; O2SAT 99
[2017-03-18] MEDS ORDERED: OXYC1TAB36 PO (12:00)
[2017-03-18] MEDS ORDERED: METR-1 PO (12:00)
[2017-03-18] MEDS ORDERED: CIPR-9 PO (12:00)
[2017-03-18] MEDS: ENOXAPARIN SODIUM 40 MG/0.4 ML SYRINGE SQ SCH (14:00)
--- NOTE | 2017-03-18 14:44 | HHI.DCPOC ---
Discharge Care Plan Diagnosis: (1) Urinary tract infection (2) Pelvic mass in female (3) Hypokalemia Goals to Promote Your Health * To prevent worsening of your condition and complications * To maintain your health at the optimal level Directions to Meet Your Goals Take your medications as prescribed Follow your dietary instruction Follow activity as directed Keep your appointments as scheduled Take your immunizations and boosters as scheduled If your symptoms worsen call your PCP, if no PCP go to Urgent Care Center or Emergency Room Smoking is Dangerous to Your Health. Avoid second hand smoke Call the 24-hour hour crisis hotline for domestic abuse at Janneth Soares MD R1 Mar 18, 2017 14:44
--- NOTE | 2017-03-18 17:29 | HHI.FPPN ---
Subjective Remarks Patient was seen and evaluated this morning. She states that she feels a lot better and is ready to go home. She has minimal pain. Patient admits to multiple BMs over past 24 hr after receiving stool softener. She denies chest pain, heart palpitations, shortness of breath, nausea, vomiting, diarrhea and constipation. She denies burning or pain with urination. Patient understands that she has an infection in her urinary tract and possibly kidneys, which has been treated over the past few days but requires more days of PO antibiotics. She also understands that she has bacterial vaginosis and has been treated for it but requires additional days of PO antibiotics. We then explained the importance of following up with Dr. Huerta as an outpatient concerning the abdominal mass. Per Dr De Jesus, Dr. Huerta would like to see the patient in her clinic within the week to schedule her for surgery. (Janneth Soares MD R1) Objective Vitals Vital Signs Date Time Temp Pulse Resp B/P Pulse Ox O2 Delivery O2 Flow Rate FiO2 03/18/17 12:00 98.6 106 16 101/64 99 03/18/17 08:00 97.3 98 16 102/69 99 03/18/17 04:00 97.7 92 16 101/60 100 03/18/17 00:27 16 03/18/17 00:00 99.7 108 18 116/74 98 03/17/17 20:14 99 21 03/17/17 20:00 96.7 101 18 104/65 98 I/O 03/17/17 03/17/17 03/17/17 03/18/17 03/18/17 03/18/17 07:00 15:00 23:00 07:00 15:00 23:00 Intake Total 1822 ml 1050 ml 480 ml 570 ml Output Total 2 ml Balance 1822 ml 1048 ml 480 ml 570 ml Intake Oral 1000 ml 1050 ml 480 ml 570 ml IV Total 822 ml Output Urine Total 2 ml # Voids 2 2 2 7 # Bowel Movements 0 3 (Janneth Soares MD R1) Result Diagram: 03/18/17 0911 03/18/17 0911 Other Results CA 125 66.2H Tumor Marker AFP 2.9 Imaging Last Impressions Pelvis Ultrasound 03/17/17 1148 Signed Impressions: Service Date/Time: Friday, March 17, 2017 13:39 - CONCLUSION: 1. Complex appearance to the adnexa bilaterally. The tubular cystic structures in the adnexal region identified on both CT and ultrasound could represent tubo- ovarian abscess. 2. In addition, there is a fatty lesion in the right adnexal region measuring 4.5 x 4.8 cm which could represent a dermoid. 3. The uterus is sonographically intact. No free fluid. Yassine Strong MD Chest X-Ray 03/17/17 Signed Impressions: Service Date/Time: Friday, March 17, 2017 11:51 - CONCLUSION: Normal examination. Marty Anguiano MD Abdomen/Pelvis CT 03/17/17 0000 Signed Impressions: Service Date/Time: Friday, March 17, 2017 10:28 - CONCLUSION: Large multiloculated mass arising in the pelvis. There numerous components to the mass. There is a soft tissue density solid component which appears to be the uterus with numerous hypodense leiomyoma scattered throughout the wall. It surrounded superiorly posteriorly and to the left by a large tubular hypodense collection without identifiable left ovary. Could be a tubo-ovarian abscess. On the right side of the mass is a fatty area measuring 4.8 x 4.5 cm possible teratoma. Repeat study with oral contrast may be helpful. COUNSELOR AIDE referral is recommended. There is also fluid along the anterior chest superiorly within the abdominal musculature just superficial to the ribs as well as a small right pleural effusion. Marty Anguiano MD Renal Ultrasound 03/15/17 0000 Signed Impressions: Service Date/Time: Wednesday, March 15, 2017 15:42 - CONCLUSION: 1. Negative renal sonogram. 2. Cystic defects within the lumen of the urinary bladder posterior , possible cystoceles. Truong Chino MD Objective Remarks GENERAL: This is a well-nourished, well-developed patient, in no apparent distress. SKIN: No rashes, ecchymoses or lesions. Cool and dry. HEAD: Atraumatic. Normocephalic. No temporal or scalp tenderness. EYES: Pupils equal round and reactive. Extraocular motions intact. No scleral icterus. No injection or drainage. ENT: Nose without bleeding, purulent drainage or septal hematoma. Airway patent. NECK: Trachea midline. No JVD or lymphadenopathy. Supple, nontender, no meningeal signs. CARDIOVASCULAR: Regular rate and rhythm without murmurs, gallops, or rubs. RESPIRATORY: Clear to auscultation. Good respiratory effort. Breath sounds equal bilaterally. No wheezes, rales, or rhonchi. GASTROINTESTINAL: Abdomen tense, tender -improved, distended. Some voluntary guarding. No CVA tenderness. No hepato-splenomegaly, or palpable masses. MUSCULOSKELETAL: Extremities without clubbing, cyanosis, or edema. No joint tenderness, effusion, or edema noted. No calf tenderness. NEUROLOGICAL: Awake and alert. Cranial nerves II through XII intact. Motor and sensory grossly within normal limits. Normal speech. Medications and IVs Piperacilli Sod/Tazobactam Sod 50ml @ 100 mls/hr q6h IV Metronidazole 500mg BID PO Citalopram Hydrobromide 40mg daily @08 PO Quetiapine Fumarate 150mg BID PO Oxycodone/Acetaminophen 10-325MG 1 tab q6hr PRN PO Chlordiazepoxide 5 mg TID PO (Janneth Soares MD R1) Urinary Catheter: No (Janneth Soares MD R1) Vascular Central Line Catheter: No (Janneth Soares MD R1) A/P Assessment and Plan Patient is a 36-year-old female who presented to the ED with complaints of abdominal and pelvic pain x 3 days. In the ED, exam was positive for PID and UA showed evidence of UTI. Critical K level was noted at admission. Patient admitted to observation initially, and admitted to inpatient status on due to IV antibiotic administration, elevated lactic acid, concern for sepsis. Discharge Planning Discharge today. (Janneth Soares MD R1) Attending Attestation The exam, history, and the medical decision-making described in the above note were completed with the assistance of the resident physician. I reviewed and agree with the findings presented. I attest that I had a [id number] encounter with the patient on the same day, and personally performed and documented my assessment and findings in the medical record. (Karen Cameron MD) Problem List: (1) Pelvic mass in female Status: Acute Plan: Dr. De Jesus ([employer]) saw and evaluated the patient. Per Dr. De Jesus, Dr. Huerta would like patient to follow up as an outpatient to discuss surgery. Pelvic US: * Complex appearance to the adnexa bilaterally. The tubular cystic structures in the adnexal region identified on both CT and ultrasound could represent tubo- ovarian abscess. * In addition, there is a fatty lesion in the right adnexal region measuring 4.5 x 4.8 cm which could represent a dermoid. * the uterus is sonographically intact. No free fluid. Tumor work-up: * CA 125 elevated (66.2H) * AFP normal (2.9) * Tumor marker HCG normal (less than 1) * LDH normal (195) Hospital Course: CT scan was obtained due to patient having distended abdomen without obvious source. Findings: * Large mass in the pelvis measuring 13.211.8 cm, composed of a combination of a large cysts measuring up to 7.67.9 cm but additional solid component is present. Solid component appears to have a linear hypodense area. Masses possibly are related to the bowel or fallopian tube, further elucidation by other imaging studies recommended. 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 * No inguinal lymphadenopathy noted. Medical oncology consulted 03/17/17. Discussed case with Dr. Perkins who was on- call at this time, will evaluate patient. CXR ordered 03/17/17 and unremarkable. Note, patient was told she had something which was 9cm in her belly in October 2016 which she was supposed to get worked up, thus records were requested from [facility] in [place]. (2) Urinary tract infection Status: Acute Plan: Plan: * Concern for pyelonephritiscontinue Zosyn and Flagyl as below. Discharge on Cipro to continue treating UTI/pyelonephritis. * Continue maintenance fluids to flush kidneys Hospital Course: At admission, patient complained of severe pain with urination. * Urine culture positive for Gardnerella Vaginalis. * Vitals at admission: T 99.1, P 130, RR 20, BP 112/70, O2 99 on room air * Notable labs at admission: WBC 12.7, UA: positive for RBCs, WBCs, and leukocyte esterase, Clue Cells negative, Vaginal Trichomonas negative, Vaginal Yeast negative Suspicion for pyelonephritis/sepsis: * Kidney US negative * Bladder US showed cystic defects with lumen of urinary bladder posterior, possible cystoceles - finding may predispose patient to recurrent UTIs * Temperature Max in 24 hr: 100.3 F * Pulse Range in 24 hr: 98 - 130 bpm, noted. Possibly related to EtoH withdrawal * Lactic Acid 2.4 -> 3.0H, lactic acidemia resolved Antibiotic Course: * Switched to Ceftriaxone 1,000mg q24hr IV and doxycycline 100 mg q12hr PO on . * Patient received Cefoxitin 2gm once IV and doxycycline 100mg once IV in the ED. * Patient now on Zosyn and Flagyl due to suspicion for pyelonephritis and confirmed BV. (3) Bacterial vaginosis Status: Acute Plan: Urine Culture: Gardnerella Vaginalis Started Flagyl 500 mg BID PO 03/16/17, stop date placed for 03/22/17. Will give script upon discharge to complete this course (4) Pelvic infection in female Status: Acute Plan: PID unlikely based on lab tests and clinical picture. * Chlamydia negative * N. gonorrhoeae negative Notable labs at admission: * WBC 12.7 * UA: positive for RBCs, WBCs, and leukocyte esterase * Clue Cells negative * Vaginal Trichomonas negative * Vaginal Yeast negative (5) Hypokalemia Status: Acute Plan: K normalized today. Monitor BMP. Hospital Course: * In ED, K of 2.9 was noted. Patient was asymptomatic. Initially corrected, but returned to mild hypokalemia 03/16/17. * Etiology unclear. Possibly related to nutrition * Patient received Potassium Chloride 30 meq once IV and Potassium Chloride 40 meq once PO on 03/15. Repeat K level remained at 2.9. An additional order for Potassium Chloride 40 meq once PO was placed. Repeat K was 3.6. EKG showed no evidence of diffuse t wave changes (6) GEGE (acute kidney injury) Status: Resolved Plan: Continued maintenance fluids. Etiology unclear * Possible dehydration associated with excessive alcohol intake Hospital Course * Patient received NS bolus and was started on maintenance fluid * On admission, Cr 1.01H, BUN 8 and estimated GFR 75L; repeat Cr 1.4, BUN 5L and 52L. * MIVF at 100cc/hr to flush kidneys (7) Alcohol abuse Status: Chronic Plan: Started on CIWA protocol at admission. Started on Librium 5mg TID PO on , consider taper over hospital course. Background: * Patient admits to excessive drinking. * Beer x1/day plus shots of Vodka x2; shot = red solo cup * Denies hx of alcohol withdrawal seizures or DT. (8) Tobacco abuse Status: Chronic Plan: Patient admits to smoking 1/2 pack/day since she was 19 years old. She wants to smoke and requests to step outside for a cigarette. She has been counseled that this is against policy. Nicotine patch high dose daily ordered. (9) Fluid, Electrolyte, Nutrition and Prophylaxis Status: Acute Plan: Fluid: * Maintenance fluid: NS 100 mls/hr Electrolytes * Potassium - see hypokalemia * Phosphorus normalized, will monitor * Replete when necessary Nutrition: * Regular diet. DVT Prophylaxis: * Deferred due to ambulatory. GI Prophylaxis: * Not indicated at this time. (Janneth Soares MD R1) Problem Qualifiers (1) Urinary tract infection: Qualified Code: N30.01 - Acute cystitis with hematuria Janneth Soares MD R1 Mar 18, 2017 17:29 Karen Cameron MD Mar 19, 2017 08:37
--- NOTE | 2017-03-20 17:28 | HHI.DS ---
Discharge Summary Admission Date Mar 16, 2017 at 08:15 Discharge Date: Mar 18, 2017 Admitting Diagnosis PID, UTI, Hypokalemia (1) Pelvic mass in female Diagnosis: Principal Plan: Dr. De Jesus (Interactive Designer) saw and evaluated the patient. Per Dr. De Jesus, Dr. Huerta would like patient to follow up as an outpatient to discuss surgery. Pelvic US: * Complex appearance to the adnexa bilaterally. The tubular cystic structures in the adnexal region identified on both CT and ultrasound could represent tubo- ovarian abscess. * In addition, there is a fatty lesion in the right adnexal region measuring 4.5 x 4.8 cm which could represent a dermoid. * the uterus is sonographically intact. No free fluid. Tumor work-up: * CA 125 elevated (66.2H) * AFP normal (2.9) * Tumor marker HCG normal (less than 1) * LDH normal (195) Hospital Course: CT scan was obtained due to patient having distended abdomen without obvious source. Findings: * Large mass in the pelvis measuring 13.211.8 cm, composed of a combination of a large cysts measuring up to 7.67.9 cm but additional solid component is present. Solid component appears to have a linear hypodense area. Masses possibly are related to the bowel or fallopian tube, further elucidation by other imaging studies recommended. 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 * No inguinal lymphadenopathy noted. Medical oncology consulted 03/17/17. Discussed case with Dr. Perkins who was on- call at this time, will evaluate patient. CXR ordered 03/17/17 and unremarkable. Note, patient was told she had something which was 9cm in her belly in October 2016 which she was supposed to get worked up, thus records were requested from [facility] in [place]. (2) Urinary tract infection Diagnosis: Principal Plan: Plan: * Concern for pyelonephritiscontinue Zosyn and Flagyl as below. Discharge on Cipro to continue treating UTI/pyelonephritis. * Continue maintenance fluids to flush kidneys Hospital Course: At admission, patient complained of severe pain with urination. * Urine culture positive for Gardnerella Vaginalis. * Vitals at admission: T 99.1, P 130, RR 20, BP 112/70, O2 99 on room air * Notable labs at admission: WBC 12.7, UA: positive for RBCs, WBCs, and leukocyte esterase, Clue Cells negative, Vaginal Trichomonas negative, Vaginal Yeast negative Suspicion for pyelonephritis/sepsis: * Kidney US negative * Bladder US showed cystic defects with lumen of urinary bladder posterior, possible cystoceles - finding may predispose patient to recurrent UTIs * Temperature Max in 24 hr: 100.3 F * Pulse Range in 24 hr: 98 - 130 bpm, noted. Possibly related to EtoH withdrawal * Lactic Acid 2.4 -> 3.0H, lactic acidemia resolved Antibiotic Course: * Switched to Ceftriaxone 1,000mg q24hr IV and doxycycline 100 mg q12hr PO on . * Patient received Cefoxitin 2gm once IV and doxycycline 100mg once IV in the ED. * Patient now on Zosyn and Flagyl due to suspicion for pyelonephritis and confirmed BV. (3) Bacterial vaginosis Diagnosis: Secondary Plan: Urine Culture: Gardnerella Vaginalis Started Flagyl 500 mg BID PO 03/16/17, stop date placed for 03/22/17. Will give script upon discharge to complete this course (4) Pelvic infection in female Diagnosis: Secondary Plan: PID unlikely based on lab tests and clinical picture. * Chlamydia negative * N. gonorrhoeae negative Notable labs at admission: * WBC 12.7 * UA: positive for RBCs, WBCs, and leukocyte esterase * Clue Cells negative * Vaginal Trichomonas negative * Vaginal Yeast negative (5) Hypokalemia Diagnosis: Secondary Plan: K normalized today. Monitor BMP. Hospital Course: * In ED, K of 2.9 was noted. Patient was asymptomatic. Initially corrected, but returned to mild hypokalemia 03/16/17. * Etiology unclear. Possibly related to nutrition * Patient received Potassium Chloride 30 meq once IV and Potassium Chloride 40 meq once PO on 03/15. Repeat K level remained at 2.9. An additional order for Potassium Chloride 40 meq once PO was placed. Repeat K was 3.6. EKG showed no evidence of diffuse t wave changes (6) GEGE (acute kidney injury) Diagnosis: Secondary Plan: Continued maintenance fluids. Etiology unclear * Possible dehydration associated with excessive alcohol intake Hospital Course * Patient received NS bolus and was started on maintenance fluid * On admission, Cr 1.01H, BUN 8 and estimated GFR 75L; repeat Cr 1.4, BUN 5L and 52L. * MIVF at 100cc/hr to flush kidneys (7) Alcohol abuse Diagnosis: Secondary Plan: Started on CIWA protocol at admission. Started on Librium 5mg TID PO on , consider taper over hospital course. Background: * Patient admits to excessive drinking. * Beer x1/day plus shots of Vodka x2; shot = red solo cup * Denies hx of alcohol withdrawal seizures or DT. (8) Tobacco abuse Diagnosis: Secondary Plan: Patient admits to smoking 1/2 pack/day since she was 19 years old. She wants to smoke and requests to step outside for a cigarette. She has been counseled that this is against policy. Nicotine patch high dose daily ordered. (9) Fluid, Electrolyte, Nutrition and Prophylaxis Diagnosis: Secondary Plan: Fluid: * Maintenance fluid: NS 100 mls/hr Electrolytes * Potassium - see hypokalemia * Phosphorus normalized, will monitor * Replete when necessary Nutrition: * Regular diet. DVT Prophylaxis: * Deferred due to ambulatory. GI Prophylaxis: * Not indicated at this time. Consultants Gynecology Brief History Patient is a 36-year-old female who presents to the ED with complaints of abdominal and pelvic pain with "creamy white" vaginal discharge. She states that the pain is located below her naval bilaterally. The patient describes it as a sharp, non-radiating pain that comes and goes x3 days. She says that the pain is a 10/10 (8/10 after pain meds: Tylenol 3 x2 yesterday as well as day before yesterday plus Excedrin); she has been in bed, unable to complete daily tasks. Patient admits to feeling feverish two days ago but did not measure her temperature at that time. She denies chills. In triage, she was noted to have a low-grade fever of 99.1 F. Patient admits to muscle weakness and generalized body aches. 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 She says that the pain she is experiencing now is different than in the past. Patient states that she is sexually active with one male partner. Her last menstrual period was in January; her periods are irregular. A test in the ED was negative. Patient states that she had a normal Pap Smear about two week ago. She has never been . She admits to a hx of recurrent UTIs (last UTI was 3-4 months ago; she has them "every couple of months"), PID and Bacterial Vaginosis. Patient also describes a pressure/"heavy feeling" in her vaginal area over the past few days. She admits to severe pain with urination. She denies increased frequency or urge to urinate. She denies blood in her urine. In ED, UA showed evidence of UTI. Potassium levels were found to be critically low in ED. Patient states that she has had low potassium levels in the past (hospital stay a few months ago) and was treated with potassium supplementation while in the hospital. She was not given a reason for the low potassium and was not discharged with potassium supplementation. She denies chest pain, heart palpitations and shortness of breath. She admits to nausea and vomiting for the past two days; she threw up twice yesterday. She denies blood in her vomit. She denies diarrhea. She has not had a bowel movement in three days, which is not unusual for her as she sometimes goes two weeks without having a bowel movement. She is not currently on a stool softener. Of note, patient voluntarily stayed at a mental health facility in [place] x 3days about three weeks ago. She suffers from depression. Patient also states that she consumes "one beer and a couple of shots of Vodka" daily. She describes one shot as a red solo cup. Her last drink was yesterday around 5 p.m. She understands that she should not be drinking while taking her psych medications and she admits to "acting crazy" when she does. When asked about withdrawal symptoms, she admits to mild shaking but denies any seizure-like activity. Patient also admits to tobacco use since she was 19 years old; she smokes 1/2 pack/day. She also smokes marijuana (last: Mother's Day) and smokes or snorts cocaine (last: 03/12). She denies IV drug use. CBC/BMP: 03/18/17 0911 03/18/17 0911 Significant Findings Laboratory Tests Test 03/18/17 09:11 Red Blood Count 3.27 MIL/MM3 (4.00-5.30) Hemoglobin 10.5 GM/DL (11.6-15.3) Hematocrit 32.4 % (35.0-46.0) Band Neutrophils % 13 % (0-6) Monocytes % 16 % (0-8) Myelocytes 1 % (0-0) Toxic Vacuolation PRESENT (NONE SEEN) Blood Urea Nitrogen 2 MG/DL (7-18) Random Glucose 111 MG/DL (74-106) Calcium Level 8.3 MG/DL (8.5-10.1) Magnesium Level 1.2 MG/DL (1.5-2.5) Alanine Aminotransferase 55 U/L (10-53) (ALT/SGPT) Albumin 2.5 GM/DL (3.4-5.0) CA 125 Antigen 66.2 U/ML (0.0-30.2) Imaging Last Impressions Pelvis Ultrasound 03/17/17 1148 Signed Impressions: Service Date/Time: Friday, March 17, 2017 13:39 - CONCLUSION: 1. Complex appearance to the adnexa bilaterally. The tubular cystic structures in the adnexal region identified on both CT and ultrasound could represent tubo- ovarian abscess. 2. In addition, there is a fatty lesion in the right adnexal region measuring 4.5 x 4.8 cm which could represent a dermoid. 3. The uterus is sonographically intact. No free fluid. Yassine Strong MD Chest X-Ray 03/17/17 0000 Signed Impressions: Service Date/Time: Friday, March 17, 2017 11:51 - CONCLUSION: Normal examination. Marty Anguiano MD Abdomen/Pelvis CT 03/17/17 0000 Signed Impressions: Service Date/Time: Friday, March 17, 2017 10:28 - CONCLUSION: Large multiloculated mass arising in the pelvis. There numerous components to the mass. There is a soft tissue density solid component which appears to be the uterus with numerous hypodense leiomyoma scattered throughout the wall. It surrounded superiorly posteriorly and to the left by a large tubular hypodense collection without identifiable left ovary. Could be a tubo-ovarian abscess. On the right side of the mass is a fatty area measuring 4.8 x 4.5 cm possible teratoma. Repeat study with oral contrast may be helpful. INTERMODAL DISPATCHER referral is recommended. There is also fluid along the anterior chest superiorly within the abdominal musculature just superficial to the ribs as well as a small right pleural effusion. Marty Anguiano MD Renal Ultrasound 03/15/17 0000 Signed Impressions: Service Date/Time: Wednesday, March 15, 2017 15:42 - CONCLUSION: 1. Negative renal sonogram. 2. Cystic defects within the lumen of the urinary bladder posterior , possible cystoceles. Truong Chino MD PE at Discharge GENERAL: This is a well-nourished, well-developed patient, in no apparent distress. SKIN: No rashes, ecchymoses or lesions. Cool and dry. HEAD: Atraumatic. Normocephalic. No temporal or scalp tenderness. EYES: Pupils equal round and reactive. Extraocular motions intact. No scleral icterus. No injection or drainage. ENT: Nose without bleeding, purulent drainage or septal hematoma. Airway patent. NECK: Trachea midline. No JVD or lymphadenopathy. Supple, nontender, no meningeal signs. CARDIOVASCULAR: Regular rate and rhythm without murmurs, gallops, or rubs. RESPIRATORY: Clear to auscultation. Good respiratory effort. Breath sounds equal bilaterally. No wheezes, rales, or rhonchi. GASTROINTESTINAL: Abdomen tense, tender -improved, distended. Some voluntary guarding. No CVA tenderness. No hepato-splenomegaly, or palpable masses. MUSCULOSKELETAL: Extremities without clubbing, cyanosis, or edema. No joint tenderness, effusion, or edema noted. No calf tenderness. NEUROLOGICAL: Awake and alert. Cranial nerves II through XII intact. Motor and sensory grossly within normal limits. Normal speech. Hospital Course 36 year old female of psychiatric disease and ovarian cysts who presented with severe abdominal pain. The initial concern for pyelonephritis versus PID. She was initially given Ceftin and doxycycline for concern for PID, though workup was only positive for vaginal vaginosis. She was found to meet SIRS criteria shortly after admission and antibiotics were broadened. She was placed on antibiotics (Zosyn and Flagyl) and given abdominal distention and a CT abdomen was ordered with 12 x 13 cm mass in the pelvis noted. Pelvic ultrasound was subsequently ordered which showed left cystic masses of 9 x 8 x 7 cm and a 13 x 6 x 12 cm mentioned. Complex appearance of the adnexa were noted. Possible dermoid cyst was noted. Symptomatically, patient had significant abdominal pain for the first 2 days of stay. She was given narcotic pain medications to assist with management of this pain. Her pain was significantly improved on day 3 of stay and resolved on day 4 stay. Given alcohol use history, she was placed on CIWA protocol with Librium scheduled 5 mg 3 times a day for dry symptoms. Given nicotine abuse, she was given high-dose nicotine patch. Psychotropic meds were continued while inpatient. She was discharged in stable condition and was to follow-up with cardiology and PCP as outpatient. She was also discharged with 7 day additional course of Cipro and Flagyl. Pt Condition on Discharge: Stable Discharge Disposition: Discharge Home Discharge Instructions DIET: Follow Instructions for: As Tolerated, No Restrictions Activities you can perform: Regular-No Restrictions Follow up Referrals: INTERMODAL DISPATCHER - 1 Week with Akiko Huerta MD PCP Follow-up - 1 Week New Medications: Ciprofloxacin (Cipro) 500 Mg Tab 500 MG PO BID Infection #14 Ref 0 TAB Metronidazole (Flagyl) 500 Mg Tab 500 MG PO BID Infection #14 Ref 0 TAB Oxycodone-Acetaminophen (Oxycodone-Acetaminophen) 10-325 mg Tab 1 TAB PO Q6H PRN PAIN SCALE 6 TO 10 Days 14 TAB Continued Medications: Citalopram (Celexa) 40 Mg Tab 40 MG PO DAILY Control Depression #30 Ref 0 TAB Quetiapine XR (Seroquel XR) 300 Mg Tab 300 MG PO HS #30 Ref 0 TAB Discontinued Medications: Doxycycline Hyclate (Doxycycline Hyclate) 100 Mg Cap 100 MG PO BID Infection #28 Ref 0 CAP Naproxen (Naproxen) 500 Mg Tab 500 MG PO BID #20 Ref 0 TAB Nitrofurantoin Monohydrate Macrocrystals (Macrobid) 100 Mg Cap 100 MG PO BID Infection #14 Ref 0 CAP Brynn Fonseca MD R1 Mar 20, 2017 17:28
[2017-03-22] MEDS ORDERED: ZOFR4TAB3 SL (12:42)
== END 2017-03-18 15:23 | disposition home or self-care (01) | DRG 690 ==
LOC: NEPE 09:10 → NEDA 11:15 → NEPHCDU 13:44 → OBSVTOIN 03-16 08:15 → HOCB 03-16 11:02
PROVIDERS: ADMIT Family Medicine; ATTEND Family Medicine
DX: N12 Tubulo-interstitial nephritis, not specified as acute or chronic (principal); N17.9 Acute kidney failure, unspecified; E87.6 Hypokalemia; N76.0 Acute vaginitis; B96.89 Other specified bacterial agents as the cause of diseases classified elsewhere; F32.9 Major depressive disorder, single episode, unspecified; R19.09 Other intra-abdominal and pelvic swelling, mass and lump; N81.10 Cystocele, unspecified; F10.10 Alcohol abuse, uncomplicated; F17.210 Nicotine dependence, cigarettes, uncomplicated; F12.90 Cannabis use, unspecified, uncomplicated; F14.90 Cocaine use, unspecified, uncomplicated; Z87.440 Personal history of urinary (tract) infections
CPT/HCPCS: 71010; 74177; 76775; 76856; 76937; 80048; 80053; 80076; 81001; 82105; 82550; 83605; 83615; 83735; 84100; 84484; 84702; 84703; 85007; 85025; 85027; 86304; 87040; 87086; 87210; 87491; 87591; 93005; 99285; G0378; J0694; J0696; J1650; J1885; J2405; J2543; J3480; J7030; J7050; J7120; Q9967